=== PATIENT | male | born 1980 | race Two or more races ===

== ENCOUNTER 2020-12-22 23:51 | Emergency (ER) | payer OTHER, SELFPAY ==
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
--- NOTE | ~2020-12-22 | XR_ITS ---
EXAMINATION: XR HIP, LEFT CLINICAL INFORMATION: Post reduction COMPARISON: 12/23/2020 TECHNIQUE: Two views of the left hip. FINDINGS: Alignment across the left hip is now anatomic. Mild sclerotic change is demonstrated along the acetabulum. No definite fracture seen. Remaining included portions of the pelvis appear intact. XR/XR hip LT min 2V IMPRESSION: Anatomic alignment across the left hip.
[2020-12-22 23:58] VITALS: BP 150/100; PULSE 89; RESP 16; TEMP 37.2; O2SAT 99; BMI 27.7
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
--- NOTE | 2020-12-23 00:56 | PC.NURSE ---
PT MOVED TO MAIN ED LEFT HIP DISLOCATED REPORT GIVEN TO JUAN JOSE MATHEWS.
[2020-12-23 01:10] VITALS: RESP 20
[2020-12-23] MEDS: fentaNYL citrate/PF 100 MCG/2 ML VIAL IVPUSH (01:10)
[2020-12-23 01:16] LABS: MANUAL DIFF FLAG NO
[2020-12-23 01:24] LABS: Basophils Percent Auto 0.2 % (0-2); Eosinophils Percent Auto 0.5 % (0-4); Hematocrit 44.8 % (42-52); Hemoglobin 15.6 g/dl (14.0-18.0); Imm Gran Abs Auto 0.04 X10*3/uL (0.00-0.03); Imm Gran Pct Auto 0.6 % (0.0-0.4); Lymphocytes Absolute Auto 2.4 X10*3/uL (1.2-4.9); Lymphocytes Percent Auto 36.3 % (20-40); Mean Corpuscular HGB Conc 34.8 g/dl (31.0-36.0); Mean Corpuscular Hemoglobin 31.8 pg (27.0-33.0); Mean Corpuscular Volume 91.4 fL (80-98); Mean Platelet Volume 10.3 fL (9.4-12.4); Monocytes Absolute Auto 0.4 X10*3/uL (0.1-1.2); Monocytes Percent Auto 6.3 % (2-11); Neutrophils Absolute Auto 3.7 X10*3/uL (2.0-8.3); Neutrophils Percent Auto 56.1 % (45-73); Platelet Count 270 X10*3/uL (160-400); Red Cell Distribution Width 13.1 % (11.0-16.0); White Blood Count 6.5 X10*3/uL (4.8-10.8)
[2020-12-23 01:25] VITALS: BP 172/96; PULSE 102; RESP 10; TEMP 36.8; O2SAT 93
[2020-12-23 01:27] VITALS: BP 176/92; PULSE 105; RESP 18; O2SAT 99
[2020-12-23 01:32] VITALS: BP 139/86; PULSE 89; RESP 19
[2020-12-23 01:46] VITALS: BP 144/78; PULSE 95; RESP 15
--- NOTE | 2020-12-23 01:48 | PC.NURSE ---
moderate sedation completed. pt on monitored and vitals stable. pt able to be awaken and answer questions. Will continue to monitor
[2020-12-23 01:49] LABS: Alanine Aminotransferase 52 U/L (0-40); Albumin Level 4.6 g/dL (3.5-5.0); Alkaline Phosphatase 71 U/L (39-117); Aspartate Amino Transferase 45 U/L (5-37); Bilirubin Total 0.3 mg/dL (0.0-1.0); Blood Urea Nitrogen 13 mg/dL (9-16); Calcium 8.9 mg/dL (8.4-10.2); Creatinine Clr Calc Pharmacy 103.5; Estimated Glomerular Filt Rate > 60; Glucose Random 152 mg/dL (60-115); Total Protein 7.3 g/dL (6.5-8.0)
[2020-12-23] MEDS: propofoL 200 MG/20 ML VIAL 40 MG IVPUSH (01:52)
[2020-12-23 02:04] VITALS: BP 135/77; PULSE 93; RESP 13; TEMP 36.4; O2SAT 93
[2020-12-23 02:11] LABS: Anion Gap 21 (12-20); Carbon Dioxide 21 mmol/L (22-29); Chloride 103 mmol/L (96-108); Ethanol 172 mg/dL; Potassium 3.6 mmol/L (3.3-5.1); Sodium 141 mmol/L (135-145)
--- NOTE | 2020-12-23 02:27 | PC.NURSE ---
Provider in to assess pt. pt is responsive. positive cms and pedal pulses
== END 2020-12-23 03:39 | disposition home or self-care (01) ==
LOC: HO.ED 12-23 02:41
PROVIDERS: Emergency Provider Emergency Medicine Emergency Medical Services
DX: S73.035A Other anterior dislocation of left hip, initial encounter (principal); V47.5XXA Car driver injured in collision with fixed or stationary object in traffic accident, initial encounter; Y93.89 Activity, other specified; Y92.414 Local residential or business street as the place of occurrence of the external cause; Y99.9 Unspecified external cause status
CPT/HCPCS: 27250; 27252; 36415; 73502; 73521; 80053; 80320; 85025; 99152; 99284; 99285; J3010

== ENCOUNTER 2021-01-01 08:52 | Outpatient (REF) | payer OTHER, SELFPAY | END 2021-01-01 08:53 | disposition home or self-care (01) | LOC: HO.HOSX 08:52 | PROVIDERS: Visit Provider Physician Assistant | DX: Z13.89 Encounter for screening for other disorder (principal) ==

== ENCOUNTER 2022-03-12 03:26 | Emergency (ER) | payer OTHER, MEDICAID, SELFPAY ==
[2022-03-12 03:39] VITALS: BP 145/85; PULSE 72; RESP 18; O2SAT 98; BMI 26.2
[2022-03-12 03:44] VITALS: BP 133/86; PULSE 66; RESP 13; O2SAT 96
--- NOTE | 2022-03-12 03:44 | ED_ITS ---
HPI - Allergic Reaction General Chief complaint: Allergic Reaction <ALMA Walden Last Filed: 03/12/22 06:46> Stated complaint: Allergic reaction <ALMA Walden Last Filed: 03/12/22 06:46> Time Seen by Provider: 03/12/22 03:34 <ALMA Walden Last Filed: 03/12/22 06:46> Source: patient <ALMA Walden Last Filed: 03/12/22 06:46> Mode of arrival: ambulatory <ALMA Walden Last Filed: 03/12/22 06:46> Limitations: no limitations <ALMA Walden Last Filed: 03/12/22 06:46> History of Present Illness HPI narrative: This is a 42-year-old male no known medical history presenting to the emergency department with allergic reaction . Patient tells me that he had raw shrimp yesterday at approximately 17:00 he tells me he was fine until he woke up at around 2 or 3 in the morning when he noted that he was having difficulty swallowing, speaking, his tongue was swollen he had a rash throughout his body and he was having difficulty breathing. He tells me that he has no known food allergies, his only known allergy is to oxycodone which causes itching. He tells me he eats shrimp all the time and has never had any issues. Patient denies nausea, vomiting, abdominal pain, chest pain. <ALMA Walden Last Filed: 03/12/22 06:46> MD complaint: allergic reaction and hives <ALMA Walden Last Filed: 03/12/22 06:46> Onset (ago): hour(s) (10) <ALMA Walden Last Filed: 03/12/22 06:46> Exposure: food (shrimp) <ALMA Walden Last Filed: 03/12/22 06:46> Symptoms: rash, itching, facial swelling, lip swelling, difficulty swallowing, difficulty breathing, tongue swelling and hoarseness <ALMA Walden Last Filed: 03/12/22 06:46> Severity: severe <ALMA Walden Last Filed: 03/12/22 06:46> Treatment prior to arrival: none <ALMA Walden Last Filed: 03/12/22 06:46> Previous Allergic Reaction History: none <ALMA Walden Last Filed: 03/12/22 06:46> Related Data Home medications: Previous Rx's Medication Instructions Recorded diphenhydramine HCl 25 mg capsule 25 mg PO Q8H PRN #14 cap 03/12/22 (Benadryl) epinephrine 0.3 mg/0.3 mL 0.3 mg (0.3 mL) IM Q4H PRN #2 ea 03/12/22 injection, auto-injector (EpiPen 2-Hiram) prednisone 20 mg tablet 40 mg PO DAILY 5 Days #10 tab 03/12/22 <ALMA Walden Last Filed: 03/12/22 06:46> Allergies/adverse reactions: Allergies Allergy/AdvReac Type Severity Reaction Status Date / Time oxycodone Allergy Unknown Hives Verified 03/12/22 03:43 <ALMA Walden Last Filed: 03/12/22 06:46> Review of Systems Review of Systems: Constitutional : No Weight loss, No Fever, No Chills, No Fatigue, No Malaise ENT/Mouth : No sore throat, No Rhinorrhea, + edema to lips, + tongue swelling Eyes: No Eye Pain, No Swelling, No Redness Cardiovascular : No Chest Pain, + SOB, No Dyspnea on Exertion, No Orthopnea, No Edema, No Palpitations Respiratory : No Cough, No Sputum, No Wheezing Gastrointestinal : No Nausea, No Vomiting, No Diarrhea, No Constipation, No abdominal Pain, No Hematochezia, No Melena Genitourinary : No Dysuria, No Urinary Frequency, No Hematuria, Musculoskeletal : No joint pain, No Myalgias, No Joint Swelling Skin : No Skin Lesions, No rash Neuro : No Weakness, No Numbness, No Dizziness, No Headache Psych : No Anxiety/Panic, No Depression All other systems reviewed and are negative <ALMA Walden Last Filed: 03/12/22 06:46> Yes all other systems are reviewed and are negative <ALMA Walden - Last Filed: 03/12/22 06:46> [facility] Past Medical History Attestation statement: The following information was validated with the patient. <ALMA Walden - Last Filed: 03/12/22 06:46> Source: old records reviewed and nursing notes reviewed <ALMA Walden - Last Filed: 03/12/22 06:46> Medical History: Medical History No known health problems <ALMA Walden - Last Filed: 03/12/22 06:46> Social History Social History: Social History Alcohol intake: current Alcohol intake frequency: a few times a month Patient Tobacco Use Status: Never used Tobacco Use of substances other than those prescribed or required for medical reasons: No Advance Directives: No <ALMA Walden - Last Filed: 03/12/22 06:46> Physical Exam ED Vital Signs: Vital Signs - 24 hr 03/12/22 03:39 03/12/22 03:44 03/12/22 04:00 Temperature Pulse Rate 72 66 55 Respiratory Rate 18 13 20 Blood Pressure 145/85 H 133/86 142/79 H Pulse Oximetry 98 96 99 03/12/22 06:00 03/12/22 07:29 Temperature 98.3 F Pulse Rate 82 85 Respiratory Rate 13 16 Blood Pressure 125/74 141/80 H Pulse Oximetry 95 96 BMI result Body Mass Index 26.2 VSS <ALMA Walden - Last Filed: 03/12/22 06:46> Vital Signs - 24 hr 03/12/22 03:39 03/12/22 03:44 03/12/22 04:00 Temperature Pulse Rate 72 66 55 Respiratory Rate 18 13 20 Blood Pressure 145/85 H 133/86 142/79 H Pulse Oximetry 98 96 99 03/12/22 06:00 03/12/22 07:29 Temperature 98.3 F Pulse Rate 82 85 Respiratory Rate 13 16 Blood Pressure 125/74 141/80 H Pulse Oximetry 95 96 BMI result Body Mass Index 26.2 <Colby Dunbar MD - Last Filed: 03/12/22 09:13> Appearance: Alert.? Oriented X3.? No acute distress.?+ Patient has a hoarse voice, speaking in short sentences. Head: Normocephalic, atraumatic, no step-offs or deformities Eyes: Pupils equal, round and reactive to light.? ENT: + angiedema, swelling of lips, tongue, and uvula. Neck: Normal inspection.? Neck supple.? CVS: Normal heart rate and rhythm.? Pulses normal.? Respiratory: No respiratory distress.? Breath sounds normal.? Abdomen: Soft and nontender.? Skin: Skin warm and dry.? Normal skin color.? Normal skin turgor.?+ urticaria noted scattered throughout body Extremities: No lower extremity edema.? No calf ttp. 5/5 strength to bilateral upper and lower extremities Back: No midline tenderness, no C-spine tenderness, full range of motion, no CVA tenderness bilaterally Neuro: Oriented X 3.? No motor deficit.? No sensory deficit. CN 2-12 intact <ALMA Walden - Last Filed: 03/12/22 06:46> Course Reevaluation(s) Reevaluation #1: Patient reports he is feeling better after epinephrine, Solu-Medrol, Pepcid and Benadryl. Speaking in full sentences saturating 99% on room air. On the linen clerk in a normal sinus rhythm pulse rate between is 60s and 70s. Appears well no acute distress. <ALMA Walden - Last Filed: 03/12/22 06:46> Time: 04:24 <ALMA Walden - Last Filed: 03/12/22 06:46> Reevaluation #2: Upon re-evaluation swelling has improved significantly. Patient speaking in full sentences, controlling secretions well, voices much more clear, no longer course. Patient tells me he is feeling better he does not feel like his throat is closing. Patient's vital signs are stable saturating 98 99% on room air. Educated patient on proper use of EpiPen. Patient will be discharged home on prednisone. He will also be given an EpiPen and Benadryl. I gave patient information of an allergy/immunology doctor in the area that he can follow up with for full panel allergy testing. Advised him to stay away from possible triggers such as shrimp and or anything else he feels could have contributed to this episode. Patient feels well excited to go home, no medical complaints at this time. I also had evaluate this patient who agrees that patient is appropriate for discharge and he should be discharged home on steroids with an EpiPen. Comfortable with discharge home with PCP and specialist follow-up. <ALMA Walden - Last Filed: 03/12/22 06:46> Time: 06:29 <ALMA Walden - Last Filed: 03/12/22 06:46> Reevaluation #3: Just prior to trying to discharge the patient, he complained of increased difficulty swallowing therefore he was given a 2nd dose of epinephrine IM. He now is feeling better. He states that he states that he is having no difficulty swallowing. He believes that his tongue is back to normal size in his lips of also return to normal size. The patient will be discharged home. I did discuss allergic reactions and the need for possible referral to an at geographic information systems manager since there is no clear allergies for his symptoms. <Colby Dunbar MD - Last Filed: 03/12/22 09:13> Time: 09:10 <Colby Dunbar MD - Last Filed: 03/12/22 09:13> MDM - Allergic Reaction MDM Narrative Medical decision making narrative: 0340 42-year-old male presents with acute allergic reaction to suspected shrimp. Physical examination significant for edema to lips, tongue, uvula, hoarse voice. Patient controlling secretions well. Stable vitals. Lungs clear. Regular rate and rhythm. Abdomen soft nontender nondistended. Neuro exam nonfocal. Immediately upon patient's arrival 0.3 mg of IM epinephrine were administered. As well as Pepcid, methylprednisolone, Benadryl and normal saline. <ALMA Walden - Last Filed: 03/12/22 06:46> Medical Records Attestation: I reviewed the patient's medical records. <ALMA Walden - Last Filed: 03/12/22 06:46> Lab Data Attestation: I reviewed the patient's lab results. <ALMA Walden - Last Filed: 03/12/22 06:46> Critical Care Time Critical Care Time Critical Care Time: No <ALMA Walden - Last Filed: 03/12/22 06:46> Discharge Plan Discharge Clinical Impression: Allergic reaction, Urticaria, Anaphylaxis <ALMA Walden Last Filed: 03/12/22 06:46> Patient Disposition: Home, Self-Care <ALMA Walden - Last Filed: 03/12/22 06:46> Instructions: Urticaria (ED), General Allergic Reaction (ED), Allergy Testing (ED) <ALMA Walden - Last Filed: 03/12/22 06:46> Additional Instructions: Take your medications as prescribed. If you were prescribed antibiotics today, it is important that you take your medication to their entirety, do not skip any doses, do not finish them early. Follow-up with your primary care provider this week. Follow up with an allergy doctor as soon as possible as you will likely require full panel allergy testing. An EpiPen has been sent to your pharmacy, please use this as instructed in cases of emergencies such as difficulty breathing, speaking, feeling like her throat is closing, shortness of breath. If you use your EpiPen you must seek medical attention immediately after. I have educated on proper use and appropriate situations and when to use it. If you have any other questions please feel free to ask the pharmacist. Ghanshyam has also been sent to her pharmacy for a mild reaction such as hives. Return to the emergency department with new or worsening symptoms. Such as fevers, chills, chest pain, shortness of breath, nausea, vomiting, dizziness, headache, vision changes, lethargy For now on until your told otherwise please avoid eating shrimp and or medications that may have triggered this reaction. In case of emergency call 911 Talk to your doctor about getting referred to an vendor specialist, you can try the group below as well. JAMI: [facility] [address] [place], [facility] [id number] <ALMA Walden Last Filed: 03/12/22 06:46> Prescriptions: New epinephrine [EpiPen 2-Hiram] 0.3 mg/0.3 mL auto-injector 0.3 mg IM Q4H PRN (Reason: anaphylaxis) Qty: 2 0RF diphenhydramine HCl [Benadryl] 25 mg capsule 25 mg PO Q8H PRN (Reason: allergic reaction) Qty: 14 0RF prednisone 20 mg tablet 40 mg PO DAILY 5 Days Qty: 10 0RF <ALMA Walden - Last Filed: 03/12/22 06:46> Referrals: ED Physician,Generic [Physician] - 2 days <ALMA Walden - Last Filed: 03/12/22 06:46> Stand Alone Forms: Work/School Release <ALMA Walden - Last Filed: 03/12/22 06:46> Interventions: ED Discharge Assessment Last Done: 03/12/22 06:34 <ALMA Walden - Last Filed: 03/12/22 06:46>
[2022-03-12] MEDS: EPINEPHrine 1 MG/ML VIAL 0.3 MG IM ×2 (03:45→06:53)
[2022-03-12] MEDS: methylPREDNISolone Sod Succ 125 MG/2 ML VIAL IVPUSH (03:46)
[2022-03-12] MEDS: Famotidine/PF 20 MG/2 ML VIAL IVPUSH (03:46)
[2022-03-12] MEDS: 0.9 % Sodium Chloride 1,000 ML 999 ML IV (03:46)
[2022-03-12] MEDS: diphenhydrAMINE HCL 50 MG/ML VIAL 25 MG IVPUSH (03:46)
--- NOTE | 2022-03-12 03:55 | PC.NURSE ---
pt changed over, provider into assess pt. pt had swollen lips and tongue due to eating shrimp. no distress to airway. Iv placed and medications given per order. pt placed on the tele-monitor at the bedside. Reported to JUAN JOSE Pickard.
[2022-03-12 04:00] VITALS: BP 142/79; PULSE 55; RESP 20; O2SAT 99
[2022-03-12 06:00] VITALS: BP 125/74; PULSE 82; RESP 13; O2SAT 95
--- NOTE | 2022-03-12 07:03 | PC.NURSE ---
report taken from samara rn pt here for angioedema/swelling from unknown source, pt sts recently having shrimp and motrin which were only things out of ordinary for him of late. no distress on first contact, rr even unlabored, given second im dose of epi by previous shift rn. will assess readiness for dc pending effect.
[2022-03-12 07:29] VITALS: BP 141/80; PULSE 85; RESP 16; TEMP 36.8; O2SAT 96
== END 2022-03-12 09:40 | disposition home or self-care (01) ==
PROVIDERS: Emergency Provider Emergency Medicine Emergency Medical Services; PCP Internal Medicine
DX: T78.02XA Anaphylactic reaction due to shellfish (crustaceans), initial encounter (principal); L27.2 Dermatitis due to ingested food; L50.0 Allergic urticaria; R13.10 Dysphagia, unspecified; Z79.899 Other long term (current) drug therapy
CPT/HCPCS: 96361; 96372; 96374; 96375; 99284; J0171; J1200; J2930

== ENCOUNTER 2022-11-18 15:04 | Emergency (ER) | payer OTHER, MEDICAID, SELFPAY ==
--- NOTE | ~2022-11-18 | CT_ITS ---
EXAMINATION: CT ANGIOGRAM OF THE CHEST WITH AND WITHOUT CONTRAST (CT PULMONARY ANGIOGRAM FOR PE) CLINICAL INFORMATION: Reason for Exam CP st elevations COMPARISON: None TECHNIQUE: Prior to contrast administration, noncontrast localization images were obtained. Subsequently, multidetector volumetric imaging was performed from the thoracic inlet to below the diaphragms following the administration of 80 mL Omnipaque 350 intravenous contrast. No contrast reaction reported Sagittal, coronal, and MIP oblique sagittal reformatted images were obtained on the CT workstation, uploaded to PACS, and reviewed. This CT examination was performed using dose optimization techniques as appropriate, variously including the following: *Automated exposure control *Adjustment of mA and/or kV according to patient size (this includes techniques or standardized protocols for targeted exams where dose is matched to indication/reason for exam; i.e. extremities or head) *Use of iterative reconstruction technique Total exam dose-length product 385 mGy-cm FINDINGS: QUALITY OF STUDY/CONTRAST BOLUS: Satisfactory. PULMONARY ARTERIES: No central or segmental pulmonary emboli. THORACIC AORTA: No aneurysm or dissection. LUNG: Both lungs are fairly well-expanded and clear of acute pneumonic process. No pulmonary nodule, mass or consolidation seen. PLEURA: No pleural effusion or pneumothorax. MEDIASTINUM: Thyroid lobes are symmetrical and normal. The central trachea and bronchi are widely patent. No abnormal size mediastinal or hilar lymph nodes seen. There is no pericardial effusion. CORONARY ARTERY CALCIFICATION: None visualized on this study. CHEST WALL/AXILLA: No axillary or internal mammary lymphadenopathy. OSSEOUS STRUCTURES: No aggressive lytic or sclerotic process seen. UPPER ABDOMEN: Visualized liver, spleen, pancreas and bilateral adrenal glands are unremarkable. There is a small hiatal hernia. No reflux of contrast into the hepatic veins to suggest elevated right heart pressures. CT/CT angio chest PE protocol IMPRESSION: 1. No evidence of PE. 2. No evidence of aortic dissection or aneurysm. 3. Small hiatal hernia VTE: Negative
--- NOTE | ~2022-11-18 | XR_ITS ---
EXAMINATION: XR CHEST CLINICAL INFORMATION: Chest pain. COMPARISON: Chest and rib radiographs dated 06/17/2014. TECHNIQUE: 2 views of the chest were obtained. FINDINGS: No significant abnormality is noted involving the heart, lungs, mediastinum, bony thorax or soft tissues. XR/XR chest 2V IMPRESSION: No acute cardiopulmonary process.
--- NOTE | 2022-11-18 15:06 | ECG_ITS ---
Test Reason : cp Blood Pressure : / mmHG Vent. Rate : 076 BPM Atrial Rate : 076 BPM P-R Int : 172 ms QRS Dur : 098 ms QT Int : 362 ms P-R-T Axes : 046 -19 -13 degrees QTc Int : 407 ms Normal sinus rhythm Moderate voltage criteria for LVH, may be normal variant ( R in aVL , [place] product ) ST elevation, consider early repolarization, pericarditis, or injury Abnormal ECG No previous ECGs available Referred By: Kamille Coy Electronically Signed By:Gopal Gonzalez
[2022-11-18 15:07] VITALS: BP 135/87; PULSE 81; RESP 18; TEMP 36.8; O2SAT 98; BMI 27.8
--- NOTE | 2022-11-18 15:07 | ED.CHESTPAIN ---
HPI - Chest Pain General Chief Complaint: Chest Pain <Kamille Coy NP - Last Filed: 11/18/22 15:09> Stated Complaint: chest pain <Kamille Coy NP - Last Filed: 11/18/22 15:09> Time Seen by Provider: 11/18/22 16:05 <Kamille Coy NP - Last Filed: 11/18/22 15:09> Source: patient <Yamila Ragland NP - Last Filed: 11/19/22 00:31> Mode of arrival: ambulatory <Yamila Ragland NP - Last Filed: 11/19/22 00:31> Limitations: no limitations <Yamila Ragland NP - Last Filed: 11/19/22 00:31> History of Present Illness HPI narrative: 42-year-old male presents from Dr. Chapa's office for abnormal EKG. Patient presented for 2 months of intermittent substernal chest pain. <Yamila Ragland NP - Last Filed: 11/19/22 00:31> MD complaint: chest pain and chest discomfort <Yamila Ragland NP - Last Filed: 11/19/22 00:31> Onset (ago): month(s) (2) <Yamila Ragland NP - Last Filed: 11/19/22 00:31> Timing of current episode: episodic <Yamila Ragland NP - Last Filed: 11/19/22 00:31> Prior episodes: Yes <Yamila Ragland NP - Last Filed: 11/19/22 00:31> Onset: during rest <Yamila Ragland NP - Last Filed: 11/19/22 00:31> Pain location: substernal <Yamila Ragland NP - Last Filed: 11/19/22 00:31> Pain radiation: none <Yamila Ragland NP - Last Filed: 11/19/22 00:31> Severity: moderate <Yamila Ragland NP - Last Filed: 11/19/22 00:31> Pain scale (0-10): 5 <Yamila Ragland NP - Last Filed: 11/19/22 00:31> Quality: tightness and heaviness <CATHY Holbrook Last Filed: 11/19/22 00:31> Relieving factors: nothing <Yamila Ragland NP - Last Filed: 11/19/22 00:31> Exacerbating factors: exertion <Yamila Ragland NP - Last Filed: 11/19/22 00:31> Associated symptoms: dyspnea <Yamila Ragland NP - Last Filed: 11/19/22 00:31> Treatment prior to arrival: none <Yamila Ragland NP - Last Filed: 11/19/22 00:31> Risk Factors Coronary artery disease risk factors: none <CATHY Holbrook Last Filed: 11/19/22 00:31> Thoracic aortic dissection risk factors: none <Yamila Ragland NP - Last Filed: 11/19/22 00:31> Related Data Home Medications: Previous Rx's Medication Instructions Recorded diphenhydramine HCl 25 mg capsule 25 mg PO Q8H PRN allergic reaction 03/12/22 (Benadryl) #14 caps epinephrine 0.3 mg/0.3 mL 0.3 mg (0.3 mL) IM Q4H PRN 03/12/22 injection, auto-injector (EpiPen anaphylaxis #2 ea 2-Hiarm) prednisone 20 mg tablet 40 mg PO DAILY 5 days #10 tabs 03/12/22 <Kamille Coy NP - Last Filed: 11/18/22 15:09> Allergies/Adverse Reactions: Allergies Allergy/AdvReac Type Severity Reaction Status Date / Time oxycodone Allergy Unknown Hives Verified 03/12/22 03:43 <Kamille Coy NP - Last Filed: 11/18/22 15:09> Review of Systems Review of Systems: Constitutional: No Fever, No Chills Cardiovascular: Positive Chest Pain, positive SOB on exertion. Respiratory: No Cough, No Dyspnea Gastrointestinal: No Nausea, No Vomiting, No Diarrhea, No abdominal Pain Genitourinary: No Dysuria, No Hematuria Musculoskeletal: No joint pain, No Myalgias, No Joint Swelling Skin: No Skin lacerations, No rash Neuro: No Weakness, No Numbness, No Paresthesias, No Dizziness, No Headache Psych: Positive Anxiety, no Panic, No Depression <Yamila Ragland NP - Last Filed: 11/19/22 00:31> Yes all other systems are reviewed and are negative <Yamila Ragland NP - Last Filed: 11/19/22 00:31> [facility] Past Medical History Attestation statement: The following information was validated with the patient. <Yamila Ragland NP - Last Filed: 11/19/22 00:31> Source: old records reviewed <Yamila Ragland NP - Last Filed: 11/19/22 00:31> Medical History: Medical History No known health problems <Kamille Coy NP - Last Filed: 11/18/22 15:09> Social History Social History: Social History Alcohol intake: unknown Patient Tobacco Use Status: Never used Tobacco Smoked in Last 30 Days: No Use of substances other than those prescribed or required for medical reasons: No Advance Directives: No Advance Directives Information Provided: Yes <Kamille Coy NP - Last Filed: 11/18/22 15:09> Physical Exam Vital Signs: Vital Signs: Last Vital Signs Temp 98.3 F 11/18/22 15:07 Pulse 71 11/18/22 20:42 Resp 14 11/18/22 20:42 BP 147/75 H 11/18/22 20:42 Pulse Ox 94 11/18/22 20:42 O2 Del Method 11/18/22 20:42 BMI result Body Mass Index 27.8 <Kmaille Coy NP - Last Filed: 11/18/22 15:09> Vital Signs: Last Vital Signs Temp 98.3 F 11/18/22 15:07 Pulse 71 11/18/22 20:42 Resp 14 11/18/22 20:42 BP 147/75 H 11/18/22 20:42 Pulse Ox 94 11/18/22 20:42 O2 Del Method 11/18/22 20:42 BMI result Body Mass Index 27.8 <Yamila Ragland NP - Last Filed: 11/19/22 00:31> Appearance: Alert. Oriented X3. Moderate anxiety distress. Eyes: Pupils equal, round and reactive to light. ENT: Pharynx normal. Neck: Normal inspection. Neck supple. CVS: Normal heart rate and rhythm. Pulses normal. Respiratory: No respiratory distress. Breath sounds normal. Abdomen: Soft and nontender. Skin: Skin warm and dry. Normal skin color. Normal skin turgor. Extremities: No lower extremity edema. Gait well-balanced well coordinated. Neuro: No motor deficit. No sensory deficit. Cranial nerves 2-12 intact. <Yamila Ragland NP - Last Filed: 11/19/22 00:31> Course Course Course Narrative: This is a rapid medical exam. Defer additional HPI, ROS, PE to prior provider. 42-year-old male with no known medical history here with intermittent chest pain x 2 months. Seen at primary care and referred in for further evaluation. Patient reports some intermittent chest pain and shortness of breath. No palpitations, dizziness, cough or fever. Will need labs, EKG, CXR, covid screen. VSS <Kamille Coy NP - Last Filed: 11/18/22 15:09> This is a rapid medical exam. Defer additional HPI, ROS, PE to prior provider. 42-year-old male with no known medical history here with intermittent chest pain x 2 months. Seen at primary care and referred in for further evaluation. Patient reports some intermittent chest pain and shortness of breath. No palpitations, dizziness, cough or fever. Will need labs, EKG, CXR, covid screen. VSS 42-year-old male presents with 2 months of intermittent substernal chest pain that feels like pressure and tightness with shortness of breath on exertion. Patient does not report any changes in vision, diaphoresis, weakness, a radiation of pain to arm or neck during these episodes of chest pain. States it feels better when he lays on his right side. He does have a significant family history of sudden cardiac in his mother, in her 30s. Patient does not take any medications at this time, and feel substernal chest pain at this moment. 16:[address] elevations consistent with pericarditis, early repolarization or injury, I did discuss this with Dr. Gonzalez, order for repeat EKG, and bedside echo stat. I did I doubt an ESR CRP 2nd troponin and gave 0.5 mg of IV Ativan for anxiety. 16:52 STEMI with reciprocal changes, echo being completed at bedside at this time, given aspirin [address] 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 Echocardiogram negative for acute findings. Normal ejection fraction. PE study is negative for acute findings. Third troponin is negative. Low likelihood of ACS at this time, most likely pericarditis. Will have patient follow-up with Dr. Gonzalez in the office. Dr. Gonzalez was consulted throughout the entire duration of this patient's stay. Plan of care is for discharge home. Patient understands signs and symptoms indicating need for emergent intervention. <Yamila Ragland NP - Last Filed: 11/19/22 00:31> Consultations Consultation #1: Carlos <Yamila Ragland NP - Last Filed: 11/19/22 00:31> Time: 16:39 <Yamila Ragland NP - Last Filed: 11/19/22 00:31> Medications Administered Discontinued Medications Generic Name Dose Route Start Last Admin Trade Name Freq PRN Reason Stop Dose Admin Aspirin 324 mg 11/18/22 16:53 11/18/22 16:58 Aspirin 81 Mg Tab.Chew PO 11/18/22 16:54 324 mg ONCE ONE Administration Atorvastatin Calcium 80 mg 11/18/22 16:53 11/18/22 16:59 Atorvastatin Calcium 80 Mg Tablet PO 11/18/22 16:54 80 mg ONCE ONE Administration Iohexol 100 ml 11/18/22 18:47 11/18/22 18:47 Iohexol 350 Mg/Ml 100 Ml Infus..Btl IV 11/18/22 18:48 65 ml ONCE ONE Administration Lorazepam 0.5 mg 11/18/22 16:38 11/18/22 16:59 Lorazepam 2 Mg/Ml Vial IVPUSH 11/18/22 16:39 0.5 mg STAT STA Administration <Kamille Coy NP - Last Filed: 11/18/22 15:09> Medications Administered Discontinued Medications Generic Name Dose Route Start Last Admin Trade Name Freq PRN Reason Stop Dose Admin Aspirin 324 mg 11/18/22 16:53 11/18/22 16:58 Aspirin 81 Mg Tab.Chew PO 11/18/22 16:54 324 mg ONCE ONE Administration Atorvastatin Calcium 80 mg 11/18/22 16:53 11/18/22 16:59 Atorvastatin Calcium 80 Mg Tablet PO 11/18/22 16:54 80 mg ONCE ONE Administration Iohexol 100 ml 11/18/22 18:47 11/18/22 18:47 Iohexol 350 Mg/Ml 100 Ml Infus..Btl IV 11/18/22 18:48 65 ml ONCE ONE Administration Lorazepam 0.5 mg 11/18/22 16:38 11/18/22 16:59 Lorazepam 2 Mg/Ml Vial IVPUSH 11/18/22 16:39 0.5 mg STAT STA Administration <Yamila Ragland NP - Last Filed: 11/19/22 00:31> Medical Decision Making Differential Diagnosis Differential Diagnoses: The differential diagnosis associated with the presentation includes <Yamila Ragland NP - Last Filed: 11/19/22 00:31> STEMI, pericarditis <Yamila Ragland NP - Last Filed: 11/19/22 00:31> Admission/Observation Consideration of admission/observation: Escalation of care including admission/observation considered <Yaimla Ragland NP - Last Filed: 11/19/22 00:31> Consult Healthcare Provider Management of the patient was discussed with: Hospitalist and [employer] Member Other Ranks <Yamila Ragland NP - Last Filed: 11/19/22 00:31> Lab Data MDM Lab Attestation statement: I reviewed the patient's lab results. <Yaimla Ragland NP - Last Filed: 11/19/22 00:31> Result Diagrams: 11/18/22 15:16 11/18/22 15:16 <Kamilel Coy NP - Last Filed: 11/18/22 15:09> Labs: Lab Results 11/18/22 11/18/22 11/18/22 Range/Units 15:16 15:16 15:16 WBC 7.0 (4.8-10.8) X10*3/uL RBC 4.61 (4.60-5.80) X10*6/uL Hgb 14.9 (14.0-18.0) g/dl Hct 41.5 L (42.0-52.0) % MCV 90.0 (80.0-98.0) fL MCH 32.3 (27.0-33.0) pg MCHC 35.9 (31.0-36.0) g/dl RDW 12.9 (11.0-16.0) % Plt Count 267 (160-400) X10*3/uL MPV 9.9 (9.4-12.4) fL Immature Gran % (Auto) 0.3 (0.0-0.4) % Neut % (Auto) 58.1 (45-73) % Lymph % (Auto) 33.0 (20-40) % [place] % (Auto) 7.4 (2-11) % Eos % (Auto) 0.9 (0-4) % Baso % (Auto) 0.3 (0-2) % Lymph # (Auto) 2.3 (1.2-4.9) X10*3/uL [place] # (Auto) 0.5 (0.1-1.2) X10*3/uL Eos # (Auto) 0.1 (0.0-0.4) X10*3/uL Baso # (Auto) 0.0 (0.0-0.2) X10*3/uL Abs Immat Gran (auto) 0.02 (0.00-0.03) X10*3/uL Absolute Neuts (auto) 4.1 (2.0-8.3) x10*3/uL Absolute Nucleated RBC 0.000 (0.0-0.012) X10*3/uL Nucleated RBC % (auto) 0.0 (0.0-0.2) /100WBC ESR (0-15) MM/HR D-Dimer High Sensitivty NG/ML Sodium 142 (135-145) mmol/L Potassium 3.9 (3.3-5.1) mmol/L Chloride 104 (96-108) mmol/L Carbon Dioxide 26 (22-29) mmol/L Anion Gap 16 (12-20) BUN 8 L (9-16) mg/dL Creatinine 0.92 (0.5-1.4) mg/dL Estim Creat Clear Calc 119.1 Estimated GFR > 60 Random Glucose 86 (60-115) mg/dL Calcium 9.4 (8.4-10.2) mg/dL Total Bilirubin 0.8 (0.0-1.0) mg/dL Direct Bilirubin 0.2 (0.0-0.5) mg/dL AST 27 (5-37) U/L ALT 30 (0-40) U/L Alkaline Phosphatase 67 (39-117) U/L Troponin I High Sens < 3.5 (<3.5-35.0) ng/L C-Reactive Protein (< or = 0.50) mg/dL Total Protein 7.1 (6.5-8.0) g/dL Albumin 4.3 (3.5-5.0) g/dL COVID-19 ([facility]) (Negative) COVID-19 Clin Com 11/18/22 11/18/22 11/18/22 Range/Units 16:29 16:47 16:47 WBC (4.8-10.8) X10*3/uL RBC (4.60-5.80) X10*6/uL Hgb (14.0-18.0) g/dl Hct (42.0-52.0) % MCV (80.0-98.0) fL MCH (27.0-33.0) pg MCHC (31.0-36.0) g/dl RDW (11.0-16.0) % Plt Count (160-400) X10*3/uL MPV (9.4-12.4) fL Immature Gran % (Auto) (0.0-0.4) % Neut % (Auto) (45-73) % Lymph % (Auto) (20-40) % [place] % (Auto) (2-11) % Eos % (Auto) (0-4) % Baso % (Auto) (0-2) % Lymph # (Auto) (1.2-4.9) X10*3/uL [place] # (Auto) (0.1-1.2) X10*3/uL Eos # (Auto) (0.0-0.4) X10*3/uL Baso # (Auto) (0.0-0.2) X10*3/uL Abs Immat Gran (auto) (0.00-0.03) X10*3/uL Absolute Neuts (auto) (2.0-8.3) x10*3/uL Absolute Nucleated RBC (0.0-0.012) X10*3/uL Nucleated RBC % (auto) (0.0-0.2) /100WBC ESR 7 (0-15) MM/HR D-Dimer High Sensitivty NG/ML Sodium (135-145) mmol/L Potassium (3.3-5.1) mmol/L Chloride (96-108) mmol/L Carbon Dioxide (22-29) mmol/L Anion Gap (12-20) BUN (9-16) mg/dL Creatinine (0.5-1.4) mg/dL Estim Creat Clear Calc Estimated GFR Random Glucose (60-115) mg/dL Calcium (8.4-10.2) mg/dL Total Bilirubin (0.0-1.0) mg/dL Direct Bilirubin (0.0-0.5) mg/dL AST (5-37) U/L ALT (0-40) U/L Alkaline Phosphatase (39-117) U/L Troponin I High Sens (<3.5-35.0) ng/L C-Reactive Protein 0.20 (< or = 0.50) mg/dL Total Protein (6.5-8.0) g/dL Albumin (3.5-5.0) g/dL COVID-19 ([facility]) Negative (Negative) COVID-19 Clin Com See Note 11/18/22 11/18/22 11/18/22 Range/Units 16:47 18:12 20:36 WBC (4.8-10.8) X10*3/uL RBC (4.60-5.80) X10*6/uL Hgb (14.0-18.0) g/dl Hct (42.0-52.0) % MCV (80.0-98.0) fL MCH (27.0-33.0) pg MCHC (31.0-36.0) g/dl RDW (11.0-16.0) % Plt Count (160-400) X10*3/uL MPV (9.4-12.4) fL Immature Gran % (Auto) (0.0-0.4) % Neut % (Auto) (45-73) % Lymph % (Auto) (20-40) % [place] % (Auto) (2-11) % Eos % (Auto) (0-4) % Baso % (Auto) (0-2) % Lymph # (Auto) (1.2-4.9) X10*3/uL [place] # (Auto) (0.1-1.2) X10*3/uL Eos # (Auto) (0.0-0.4) X10*3/uL Baso # (Auto) (0.0-0.2) X10*3/uL Abs Immat Gran (auto) (0.00-0.03) X10*3/uL Absolute Neuts (auto) (2.0-8.3) x10*3/uL Absolute Nucleated RBC (0.0-0.012) X10*3/uL Nucleated RBC % (auto) (0.0-0.2) /100WBC ESR (0-15) MM/HR D-Dimer High Sensitivty < 150 NG/ML Sodium (135-145) mmol/L Potassium (3.3-5.1) mmol/L Chloride (96-108) mmol/L Carbon Dioxide (22-29) mmol/L Anion Gap (12-20) BUN (9-16) mg/dL Creatinine (0.5-1.4) mg/dL Estim Creat Clear Calc Estimated GFR Random Glucose (60-115) mg/dL Calcium (8.4-10.2) mg/dL Total Bilirubin (0.0-1.0) mg/dL Direct Bilirubin (0.0-0.5) mg/dL AST (5-37) U/L ALT (0-40) U/L Alkaline Phosphatase (39-117) U/L Troponin I High Sens 3.8 < 3.5 (<3.5-35.0) ng/L C-Reactive Protein (< or = 0.50) mg/dL Total Protein (6.5-8.0) g/dL Albumin (3.5-5.0) g/dL COVID-19 ([facility]) (Negative) COVID-19 Clin Com <Kamille Coy BEVELING MACHINE OPERATOR - Last Filed: 11/18/22 15:09> Lab Results 11/18/22 11/18/22 11/18/22 Range/Units 15:16 15:16 15:16 WBC 7.0 (4.8-10.8) X10*3/uL RBC 4.61 (4.60-5.80) X10*6/uL Hgb 14.9 (14.0-18.0) g/dl Hct 41.5 L (42.0-52.0) % MCV 90.0 (80.0-98.0) fL MCH 32.3 (27.0-33.0) pg MCHC 35.9 (31.0-36.0) g/dl RDW 12.9 (11.0-16.0) % Plt Count 267 (160-400) X10*3/uL MPV 9.9 (9.4-12.4) fL Immature Gran % (Auto) 0.3 (0.0-0.4) % Neut % (Auto) 58.1 (45-73) % Lymph % (Auto) 33.0 (20-40) % [place] % (Auto) 7.4 (2-11) % Eos % (Auto) 0.9 (0-4) % Baso % (Auto) 0.3 (0-2) % Lymph # (Auto) 2.3 (1.2-4.9) X10*3/uL [place] # (Auto) 0.5 (0.1-1.2) X10*3/uL Eos # (Auto) 0.1 (0.0-0.4) X10*3/uL Baso # (Auto) 0.0 (0.0-0.2) X10*3/uL Abs Immat Gran (auto) 0.02 (0.00-0.03) X10*3/uL Absolute Neuts (auto) 4.1 (2.0-8.3) x10*3/uL Absolute Nucleated RBC 0.000 (0.0-0.012) X10*3/uL Nucleated RBC % (auto) 0.0 (0.0-0.2) /100WBC ESR (0-15) MM/HR D-Dimer High Sensitivty NG/ML Sodium 142 (135-145) mmol/L Potassium 3.9 (3.3-5.1) mmol/L Chloride 104 (96-108) mmol/L Carbon Dioxide 26 (22-29) mmol/L Anion Gap 16 (12-20) BUN 8 L (9-16) mg/dL Creatinine 0.92 (0.5-1.4) mg/dL Estim Creat Clear Calc 119.1 Estimated GFR > 60 Random Glucose 86 (60-115) mg/dL Calcium 9.4 (8.4-10.2) mg/dL Total Bilirubin 0.8 (0.0-1.0) mg/dL Direct Bilirubin 0.2 (0.0-0.5) mg/dL AST 27 (5-37) U/L ALT 30 (0-40) U/L Alkaline Phosphatase 67 (39-117) U/L Troponin I High Sens < 3.5 (<3.5-35.0) ng/L C-Reactive Protein (< or = 0.50) mg/dL Total Protein 7.1 (6.5-8.0) g/dL Albumin 4.3 (3.5-5.0) g/dL COVID-19 ([facility]) (Negative) COVID-19 Clin Com 11/18/22 11/18/22 11/18/22 Range/Units 16:29 16:47 16:47 WBC (4.8-10.8) X10*3/uL RBC (4.60-5.80) X10*6/uL Hgb (14.0-18.0) g/dl Hct (42.0-52.0) % MCV (80.0-98.0) fL MCH (27.0-33.0) pg MCHC (31.0-36.0) g/dl RDW (11.0-16.0) % Plt Count (160-400) X10*3/uL MPV (9.4-12.4) fL Immature Gran % (Auto) (0.0-0.4) % Neut % (Auto) (45-73) % Lymph % (Auto) (20-40) % [place] % (Auto) (2-11) % Eos % (Auto) (0-4) % Baso % (Auto) (0-2) % Lymph # (Auto) (1.2-4.9) X10*3/uL [place] # (Auto) (0.1-1.2) X10*3/uL Eos # (Auto) (0.0-0.4) X10*3/uL Baso # (Auto) (0.0-0.2) X10*3/uL Abs Immat Gran (auto) (0.00-0.03) X10*3/uL Absolute Neuts (auto) (2.0-8.3) x10*3/uL Absolute Nucleated RBC (0.0-0.012) X10*3/uL Nucleated RBC % (auto) (0.0-0.2) /100WBC ESR 7 (0-15) MM/HR D-Dimer High Sensitivty NG/ML Sodium (135-145) mmol/L Potassium (3.3-5.1) mmol/L Chloride (96-108) mmol/L Carbon Dioxide (22-29) mmol/L Anion Gap (12-20) BUN (9-16) mg/dL Creatinine (0.5-1.4) mg/dL Estim Creat Clear Calc Estimated GFR Random Glucose (60-115) mg/dL Calcium (8.4-10.2) mg/dL Total Bilirubin (0.0-1.0) mg/dL Direct Bilirubin (0.0-0.5) mg/dL AST (5-37) U/L ALT (0-40) U/L Alkaline Phosphatase (39-117) U/L Troponin I High Sens (<3.5-35.0) ng/L C-Reactive Protein 0.20 (< or = 0.50) mg/dL Total Protein (6.5-8.0) g/dL Albumin (3.5-5.0) g/dL COVID-19 ([facility]) Negative (Negative) COVID-19 Clin Com See Note 11/18/22 11/18/22 11/18/22 Range/Units 16:47 18:12 20:36 WBC (4.8-10.8) X10*3/uL RBC (4.60-5.80) X10*6/uL Hgb (14.0-18.0) g/dl Hct (42.0-52.0) % MCV (80.0-98.0) fL MCH (27.0-33.0) pg MCHC (31.0-36.0) g/dl RDW (11.0-16.0) % Plt Count (160-400) X10*3/uL MPV (9.4-12.4) fL Immature Gran % (Auto) (0.0-0.4) % Neut % (Auto) (45-73) % Lymph % (Auto) (20-40) % [place] % (Auto) (2-11) % Eos % (Auto) (0-4) % Baso % (Auto) (0-2) % Lymph # (Auto) (1.2-4.9) X10*3/uL [place] # (Auto) (0.1-1.2) X10*3/uL Eos # (Auto) (0.0-0.4) X10*3/uL Baso # (Auto) (0.0-0.2) X10*3/uL Abs Immat Gran (auto) (0.00-0.03) X10*3/uL Absolute Neuts (auto) (2.0-8.3) x10*3/uL Absolute Nucleated RBC (0.0-0.012) X10*3/uL Nucleated RBC % (auto) (0.0-0.2) /100WBC ESR (0-15) MM/HR D-Dimer High Sensitivty < 150 NG/ML Sodium (135-145) mmol/L Potassium (3.3-5.1) mmol/L Chloride (96-108) mmol/L Carbon Dioxide (22-29) mmol/L Anion Gap (12-20) BUN (9-16) mg/dL Creatinine (0.5-1.4) mg/dL Estim Creat Clear Calc Estimated GFR Random Glucose (60-115) mg/dL Calcium (8.4-10.2) mg/dL Total Bilirubin (0.0-1.0) mg/dL Direct Bilirubin (0.0-0.5) mg/dL AST (5-37) U/L ALT (0-40) U/L Alkaline Phosphatase (39-117) U/L Troponin I High Sens 3.8 < 3.5 (<3.5-35.0) ng/L C-Reactive Protein (< or = 0.50) mg/dL Total Protein (6.5-8.0) g/dL Albumin (3.5-5.0) g/dL COVID-19 ([facility]) (Negative) COVID-19 Clin Com <Candy Ellyn, BEVELING MACHINE OPERATOR - Last Filed: 11/19/22 00:31> Independent Interpretation I performed an independent interpretation of an: EKG and Plain X-Ray <Yamila Ragland NP - Last Filed: 11/19/22 00:31> Interpretation: Normal sinus rhythm Moderate voltage criteria for LVH, may be normal variant ( R in aVL , [place] product ) ST elevation, consider early repolarization, pericarditis, or injury Abnormal ECG No previous ECGs available Vent. rate 76 BPM W[place] interval 172 ms QRS duration 98 ms QT/QTc 362/407 ms P-R-T axes 46 -19 -13 18-NOV-2022 15:13:37 Second EKG Normal sinus rhythm Moderate voltage criteria for LVH, may be normal variant ( R in aVL , [place] C product ) ST elevation consider lateral injury or acute infarct ACUTE MS / STEMI Abnormal ECG When compared with ECG of 18-NOV-2022 15:13, No significant change was found Vent. rate 66 BPM WV interval 184 ms QRS duration 102 ms QT/QTc 374/392 ms P-R-T axes 41 -17 -17 18-NOV-2022 16:48:05 <Yamila Ragland NP - Last Filed: 11/19/22 00:31> Radiology Impression Discussion of test interpretation with radiology: I have reviewed the radiologist's reading. <Yamila Ragland NP - Last Filed: 11/19/22 00:31> Radiologist Impression: EXAMINATION: XR CHEST CLINICAL INFORMATION: Chest pain. COMPARISON: Chest and rib radiographs dated 06/17/2014. TECHNIQUE: 2 views of the chest were obtained. FINDINGS: No significant abnormality is noted involving the heart, lungs, mediastinum, bony thorax or soft tissues. XR/XR chest 2V IMPRESSION: No acute cardiopulmonary process. FINDINGS: QUALITY OF STUDY/CONTRAST BOLUS: Satisfactory. PULMONARY ARTERIES: No central or segmental pulmonary emboli.? THORACIC AORTA: No aneurysm or dissection. LUNG: Both lungs are fairly well-expanded and clear of acute pneumonic process. No pulmonary nodule, mass or consolidation seen. PLEURA: No pleural effusion or pneumothorax. MEDIASTINUM: Thyroid lobes are symmetrical and normal. The central trachea and bronchi are widely patent.? No abnormal size mediastinal or hilar lymph nodes seen. There is no pericardial effusion. CORONARY ARTERY CALCIFICATION: None visualized on this study. CHEST WALL/AXILLA: No axillary or internal mammary lymphadenopathy. OSSEOUS STRUCTURES: No aggressive lytic or sclerotic process seen.? UPPER ABDOMEN: Visualized liver, spleen, pancreas and bilateral adrenal glands are unremarkable. There is a small hiatal hernia.? No reflux of contrast into the hepatic veins to suggest elevated right heart pressures. CT/CT angio chest PE protocol IMPRESSION: 1.? No evidence of PE. 2.? No evidence of aortic dissection or aneurysm. 3.? Small hiatal hernia VTE: Negative Conclusions: - Normal left ventricular size and systolic function. There is ? mildly increased left ventricular wall thickness.? The visually? estimated ejection fraction is between 60-65%. ? - There is no evidence of regional wall motion abnormalities.? ? - Mildly increased right ventricular cavity size.? There is? ? ? borderline right ventricular systolic function.? - There is no evidence of pericardial effusion.? Findings Procedure Information Contrast agent, definity, is being given per protocol without apparent complications. Left Ventricle Normal left ventricular size and systolic function. There is mildly increased left ventricular wall thickness.? The visually estimated ejection fraction is between 60-65%.? There is no evidence of regional wall motion abnormalities. Diastolic function is normal for age. Right Ventricle Mildly increased right ventricular cavity size.? There is borderline right ventricular systolic function. Atria The left atrium is normal in size.? The right atrium is mildly dilated. Aortic Valve There is a normal trileaflet aortic valve.? There is no aortic valve stenosis.? There is no aortic valve regurgitation. Mitral Valve Normal mitral valve structure and function.? There is no mitral valve regurgitation.? There is no mitral valve stenosis. Pulmonic Valve Normal pulmonic valve structure and function.? There is trace pulmonic valve regurgitation. Tricuspid Valve Normal tricuspid valve structure.? There is no tricuspid valve regurgitation. ?Tricuspid regurgitation envelope is inadequate for calculation of right ventricular systolic pressure.? Indeterminate right atrial pressure. Great Vessels All visible segments of the aorta are normal in size.? The visualized portions of the pulmonary artery and branches are normal. Venous The inferior vena cava was not well visualized. Pericardium/Pleural There is no evidence of pericardial effusion. Prior Study Comparison No prior study available for comparison. ?? <Yamila Ragland NP - Last Filed: 11/19/22 00:31> Independent Historian Clinical information obtained from an independent historian. History obtained from or confirmed by: Spouse <Yamila Ragland NP - Last Filed: 11/19/22 00:31> External Record Review External record reviewed: Outpatient record <Yamila Ragland NP - Last Filed: 11/19/22 00:31> Prescription Management I considered prescription management with: Pain Medication <Yamila Ragland NP - Last Filed: 11/19/22 00:31> Critical Care Time Critical Care Time Critical Care Time: Yes <Yamila Ragland NP - Last Filed: 11/19/22 00:31> Total Critical Care Time: 65 <Yamila Ragland NP - Last Filed: 11/19/22 00:31> Attestation: I have personally provided critical care time exclusive of time spent on separately billable procedures. Time includes review of laboratory data, radiology results, discussion with consultants, and monitoring for potential decompensation. Interventions were performed as documented. <Yamila Ragland NP - Last Filed: 11/19/22 00:31> Discharge Plan Discharge Clinical Impression: Pericarditis <Kamille Coy NP - Last Filed: 11/18/22 15:09> Patient Disposition: Home, Self-Care <Kamille Coy NP - Last Filed: 11/18/22 15:09> Instructions: Acute Pericarditis (ED) <Kamille Coy NP - Last Filed: 11/18/22 15:09> Additional Instructions: You were evaluated for 2 months of chest pain with an abnormal EKG. Your EKG shows ST elevations consistent with pericarditis. Your CT PE study was negative for acute findings. Your echocardiogram was normal. Please take Motrin 800 mg every 8 hours for 1 week, then Motrin 600 mg every 8 hours for 1 week, then Motrin 400 mg every 8 hours for 1 week, then Motrin 200 mg every 8 hours for 1 week then discontinue. You must follow-up with primary care as well as Cardiology. I have referred you to Dr. Gonzalez. This plumbing and heating contractor was directly involved with your care during her emergency department visit, and he did read your echocardiogram study. Please call tomorrow and request an appointment. Rest and drink plenty of fluids. Thank you for choosing this emergency department for evaluation. Please follow-up with primary care physician as needed. Return to the emergency department for any new, concerning, or worsening symptoms. <Kamille Coy NP - Last Filed: 11/18/22 15:09> Prescriptions: No Action epinephrine [EpiPen 2-Hiram] 0.3 mg/0.3 mL auto-injector 0.3 mg IM Q4H PRN (Reason: anaphylaxis) Qty: 2 0RF diphenhydramine HCl [Benadryl] 25 mg capsule 25 mg PO Q8H PRN (Reason: allergic reaction) Qty: 14 0RF prednisone 20 mg tablet 40 mg PO DAILY 5 Days Qty: 10 0RF <Kamille Coy NP - Last Filed: 11/18/22 15:09> Referrals: Harley Chapa MD [Primary Care Provider] - 5 days (Follow-up for pericarditis) Gopal Gonzalez MD [Physician] - 2 days (Cardiology appointment for abnormal EKG and suspected pericarditis) <Kamille Coy NP - Last Filed: 11/18/22 15:09> Stand Alone Forms: Work/School Release <Kamille Coy NP - Last Filed: 11/18/22 15:09> Interventions: ED Discharge Assessment Last Done: 11/18/22 21:37 <Kamille Coy NP - Last Filed: 11/18/22 15:09> Discharge Date/Time: 11/18/22 21:40 <Kamille Coy NP - Last Filed: 11/18/22 15:09>
[2022-11-18 15:36] LABS: MANUAL DIFF FLAG NO
[2022-11-18 15:39] LABS: Basophils Percent Auto 0.3 % (0-2); Eosinophils Absolute Auto 0.1 X10*3/uL (0.0-0.4); Eosinophils Percent Auto 0.9 % (0-4); Hematocrit 41.5 % (42.0-52.0); Hemoglobin 14.9 g/dl (14.0-18.0); Imm Gran Abs Auto 0.02 X10*3/uL (0.00-0.03); Imm Gran Pct Auto 0.3 % (0.0-0.4); Lymphocytes Absolute Auto 2.3 X10*3/uL (1.2-4.9); Mean Corpuscular HGB Conc 35.9 g/dl (31.0-36.0); Mean Corpuscular Hemoglobin 32.3 pg (27.0-33.0); Mean Platelet Volume 9.9 fL (9.4-12.4); Monocytes Absolute Auto 0.5 X10*3/uL (0.1-1.2); Monocytes Percent Auto 7.4 % (2-11); Neutrophils Absolute Auto 4.1 x10*3/uL (2.0-8.3); Neutrophils Percent Auto 58.1 % (45-73); Platelet Count 267 X10*3/uL (160-400); Red Blood Count 4.61 X10*6/uL (4.60-5.80); Red Cell Distribution Width 12.9 % (11.0-16.0)
[2022-11-18 15:54] LABS: Alanine Aminotransferase 30 U/L (0-40); Albumin Level 4.3 g/dL (3.5-5.0); Alkaline Phosphatase 67 U/L (39-117); Anion Gap 16 (12-20); Aspartate Amino Transferase 27 U/L (5-37); Bilirubin Direct 0.2 mg/dL (0.0-0.5); Bilirubin Total 0.8 mg/dL (0.0-1.0); Blood Urea Nitrogen 8 mg/dL (9-16); Calcium 9.4 mg/dL (8.4-10.2); Carbon Dioxide 26 mmol/L (22-29); Chloride 104 mmol/L (96-108); Creatinine Clr Calc Pharmacy 119.1; Estimated Glomerular Filt Rate > 60; Glucose Random 86 mg/dL (60-115); Potassium 3.9 mmol/L (3.3-5.1); Sodium 142 mmol/L (135-145); Total Protein 7.1 g/dL (6.5-8.0)
[2022-11-18 16:06] LABS: Troponin-I High Sensitivity < 3.5 ng/L (<3.5-35.0)
--- NOTE | 2022-11-18 16:35 | ECG_ITS ---
Test Reason : CHEST PAIN Blood Pressure : / mmHG Vent. Rate : 066 BPM Atrial Rate : 066 BPM P-R Int : 184 ms QRS Dur : 102 ms QT Int : 374 ms P-R-T Axes : 041 -17 -17 degrees QTc Int : 392 ms Normal sinus rhythm Moderate voltage criteria for LVH, may be normal variant ( R in aVL , Juan C product ) ST elevation consider lateral injury or acute infarct Abnormal ECG When compared with ECG of 18-NOV-2022 15:13, No significant change was found Referred By: Yamila Ragland Electronically Signed By:Gopal Gonzalez
--- NOTE | 2022-11-18 16:37 | CA_ITS ---
Transthoracic Echocardiogram Patient (Last, First, Middle): Richard Sosa, Gender: Male Date of : 1980 Age: 42 Procedure Date: 11/18/2022 Procedure Type: Transthoracic Echocardiogram Location: ER Height: 187.96 cm Weight: 98.43 kg BSA: 2.25 m2 Heart Rate: bpm BP: 135 / 87 mmHg Bench Mechanic: TO Referring MD: Yamila Ragland NP Symptoms: ST ELEVATION, PERICARDITIS Study Quality: Fair, contrast Conclusions: - Normal left ventricular size and systolic function. There is mildly increased left ventricular wall thickness. The visually estimated ejection fraction is between 60-65%. - There is no evidence of regional wall motion abnormalities. - Mildly increased right ventricular cavity size. There is borderline right ventricular systolic function. - There is no evidence of pericardial effusion. Findings Procedure Information Contrast agent, definity, is being given per protocol without apparent complications. Left Ventricle Normal left ventricular size and systolic function. There is mildly increased left ventricular wall thickness. The visually estimated ejection fraction is between 60-65%. There is no evidence of regional wall motion abnormalities. Diastolic function is normal for age. Right Ventricle Mildly increased right ventricular cavity size. There is borderline right ventricular systolic function. Atria The left atrium is normal in size. The right atrium is mildly dilated. Aortic Valve There is a normal trileaflet aortic valve. There is no aortic valve stenosis. There is no aortic valve regurgitation. Mitral Valve Normal mitral valve structure and function. There is no mitral valve regurgitation. There is no mitral valve stenosis. Pulmonic Valve Normal pulmonic valve structure and function. There is trace pulmonic valve regurgitation. Tricuspid Valve Normal tricuspid valve structure. There is no tricuspid valve regurgitation. Tricuspid regurgitation envelope is inadequate for calculation of right ventricular systolic pressure. Indeterminate right atrial pressure. Great Vessels All visible segments of the aorta are normal in size. The visualized portions of the pulmonary artery and branches are normal. Venous The inferior vena cava was not well visualized. Pericardium/Pleural There is no evidence of pericardial effusion. Prior Study Comparison No prior study available for comparison. Measurements 2D Linear Measurements IVSd: 1.19 0.6-0.9/0.6-1.0 cm LVIDd: 4.56 3.9-5.3/4.2-5.9 cm LVIDd Index: 2.03 2.4-3.2/2.2-3.1 cm/m2 LVIDs: 3.17 2.0-3.6 cm LVPWd: 1.17 0.7-1.1 cm LA Diam: 4.20 2.7-3.8/3.0-4.0 cm LAIDs Index: 1.87 1.5-2.3 cm/m2 LV Mass: 246.02 67-162/88-224 g LV Mass Index: 109.34 43-95/49-115 g/m2 LVOT Diam: 2.20 3.0+(-)1.3 cm 2D Systolic Function EF 4C: 58.70 >55% EF 2C: 55.20 >55% EF BiP: 57.70 >55% Mitral Valve MV Pk E: 0.71 MV PK A: 0.62 MV Decel Time: 164.00 E/A: 1.20 E'Lateral: 10.70 E'Medial: 8.59 E/E' Med: 8.30 E/E' Lat: 6.60 PHT: 48.00 MVA PHT: 4.58 Decel [place]: 4.32 Aortic Valve AoV Pk Blayne: 1.17 AoV Mn Blayne: 0.85 AoV VTI: 0.28 AoV Pk Grad: 5.00 Aov Mn Grad: 3.00 ROSEANNE Cont.VTI: 2.57 LVOT LVOT Pk Blayne: 0.90 LVOT Mn Blayne: 0.59 LVOT VTI: 0.19 LVOT Pk Grad: 3.00 LVOT Mn Grad: 2.00 LVOT Diam: 2.20 LVOT Area: 3.80 Diastolic Function MV Pk E: 0.71 MV Pk A: 0.62 E/A: 1.20 E'Medial: 8.59 E/E' Med: 8.30 E' Laterial: 10.70 E/E' Lat: 6.60 Right Ventricle TAPSE (mm): 20.90 TVS' Blayne: 10.20 Tricuspid Valve TR Pk Blayne: 1.64 TR Pk Grad: 11.00 Great Vessels Aorta Sinus of Valsalva: 3.81 2.0-3.[address] Ridge: 2.93 1.7-3.4 cm Ao Asc: 3.10 2.1-3.4 cm Updated in Other Vendor System with Status of Final Gopal Gonzalez MD electronically signed on 11/18/2022 5:59:39 PM with status of Final
[2022-11-18] MEDS: Aspirin 81 MG TAB.CHEW 324 MG PO (16:58)
[2022-11-18] MEDS: LORazepam 2 MG/ML VIAL 0.5 MG IVPUSH (16:59)
[2022-11-18] MEDS: Atorvastatin Calcium 80 MG TABLET PO (16:59)
[2022-11-18 17:10] LABS: COVID-19 Test Negative (Negative); IDNOW Serial# 55D5AD1C
[2022-11-18 17:20] LABS: Troponin-I High Sensitivity 3.8 ng/L (<3.5-35.0)
[2022-11-18 17:33] LABS: Erythrocyte Sedimentation Rate 7 MM/HR (0-15)
[2022-11-18 18:32] LABS: D Dimer High Sensitivity < 150 NG/ML
[2022-11-18] MEDS: iohexoL 350 MG/ML 100 ML INFUS..BTL IV (18:47)
[2022-11-18 20:42] VITALS: BP 147/75; PULSE 71; RESP 14; O2SAT 94
[2022-11-18 21:01] LABS: Troponin-I High Sensitivity < 3.5 ng/L (<3.5-35.0)
== END 2022-11-18 21:40 | disposition home or self-care (01) ==
PROVIDERS: Nurse Practitioner Family; Emergency Provider Emergency Medicine Emergency Medical Services; PCP Internal Medicine
DX: I31.9 Disease of pericardium, unspecified (principal); R07.89 Other chest pain; Z20.822 Contact with and (suspected) exposure to COVID-19; Z20.828 Contact with and (suspected) exposure to other viral communicable diseases; Z79.899 Other long term (current) drug therapy
CPT/HCPCS: 36415; 71046; 71275; 80048; 80076; 84484; 85025; 85379; 85652; 86140; 87635; 93005; 93306; 96374; 99284; J2060; Q9957; Q9967

== ENCOUNTER → 2022-11-22 12:55 | Outpatient (BNVA) | payer OTHER, MEDICAID, SELFPAY | PROVIDERS: PCP Internal Medicine; Visit Provider Nurse Practitioner Family | DX: R94.31 Abnormal electrocardiogram [ECG] [EKG] (principal); R07.89 Other chest pain | CPT/HCPCS: 93005 ==

== ENCOUNTER → 2022-11-27 08:03 | Outpatient (REF) | payer OTHER, MEDICAID, SELFPAY ==
--- NOTE | ~2022-11-27 | NM_ITS ---
EXERCISE MYOCARDIAL PERFUSION STUDY INDICATION: Chest pain, assess for coronary disease and ischemia TECHNIQUE: The patient was brought in for an exercise perfusion study on 11/27/2022. Patient performed exercise as per Sami protocol and was injected 35 mCi of sestamibi once target heart rate was achieved. Images were obtained using the SPECT gamma camera interlaced with the gating device. Images were obtained in supine position. Resting perfusion study was performed on 11/28/2022. Patient was administered 35 mCi of sestamibi intravenously at rest. Images were then obtained in supine position. Images were processed with the software and compared side to side in short axis, horizontal long axis and vertical long axis views. Total DLP 110mGy-cm. FINDINGS: Raw images were reviewed. The stress perfusion study showed no significant perfusion abnormality. Both uncorrected as well as CT attenuation corrected images were reviewed. The gated study shows normal LV systolic function with calculated LVEF of 61%. LV cavity is normal in size. The gated study shows normal wall thickening and contraction of segments. Resting study shows no significant perfusion abnormality. Gating at rest reveals normal wall motion with ejection fraction at 53%. The findings are consistent with no evidence of any reversible or fixed perfusion defects. NM/NM cardiolite stress test IMPRESSION: 1. Myocardial perfusion imaging study shows likely normal myocardial perfusion. 2. Gated LVEF is 61% during stress and 53% during rest. 3. Transient ischemic dilatation not present. EKG component of the test reported separately.
--- NOTE | 2022-11-27 08:08 | CA_ITS ---
Acquisition Time: 2022-11-27 08:09:41 Total Exercise Time: 00:11:00 Test Indications: Abnormal ECG Medications: NONE Protocol: DAGMAR Max HR: 166 BPM 94% of Pred: 176 BPM Max BP: 184/060 mmHG Max Work Load: 13.4 METS Exercise stress test with exercise 11 min of Dagmar protocol, achieving 94% MPHR, without anginal symptoms, without arrythmia, with normotensive response to exercise, with baseline EKG showing ST/ T wave abnormality leads III, aVF, V5-V6, without significant EKG changes during exercise or recovery. Nuclear images pending. Test reviewed with Dr Rich Referred By: Lara Bagley Overread By: LARA BAGLEY
== END ==
LOC: HO.CARD 08:03
PROVIDERS: Visit Provider Nurse Practitioner Family
DX: R07.89 Other chest pain (principal); R94.31 Abnormal electrocardiogram [ECG] [EKG]
CPT/HCPCS: 78452; 93017; A9500

== ENCOUNTER 2024-01-13 09:07 | Outpatient (REF) | payer OTHER, SELFPAY ==
[2024-01-13 09:29] LABS: MANUAL DIFF FLAG NO
[2024-01-13 10:00] LABS: Basophils Percent Auto 0.2 % (0-2); Eosinophils Absolute Auto 0.1 X10*3/uL (0.0-0.4); Hematocrit 47.1 % (42.0-52.0); Hemoglobin 16.3 g/dl (14.0-18.0); Imm Gran Abs Auto 0.01 X10*3/uL (0.00-0.03); Imm Gran Pct Auto 0.2 % (0.0-0.4); Lymphocytes Absolute Auto 1.9 X10*3/uL (1.2-4.9); Lymphocytes Percent Auto 37.3 % (20-40); Mean Corpuscular HGB Conc 34.6 g/dl (31.0-36.0); Mean Corpuscular Hemoglobin 31.3 pg (27.0-33.0); Mean Corpuscular Volume 90.4 fL (80.0-98.0); Mean Platelet Volume 10.1 fL (9.4-12.4); Monocytes Absolute Auto 0.4 X10*3/uL (0.1-1.2); Neutrophils Absolute Auto 2.7 x10*3/uL (2.0-8.3); Neutrophils Percent Auto 54.3 % (45-73); Platelet Count 280 X10*3/uL (160-400); Red Blood Count 5.21 X10*6/uL (4.60-5.80)
[2024-01-13 10:10] LABS: Estimated Average Glucose 108 mg/dL; Hemoglobin A1c % 5.4 % (<6.0)
[2024-01-13 10:37] LABS: Alanine Aminotransferase 30 U/L (0-40); Albumin Level 4.3 g/dL (3.5-5.0); Alkaline Phosphatase 69 U/L (39-117); Anion Gap 12 (12-20); Aspartate Amino Transferase 29 U/L (5-37); Bilirubin Total 0.9 mg/dL (0.0-1.0); Blood Urea Nitrogen 10 mg/dL (9-16); Calcium 9.6 mg/dL (8.4-10.2); Carbon Dioxide 29 mmol/L (22-29); Chloride 104 mmol/L (96-108); Cholesterol 273 mg/dL (<200); Estimated Glomerular Filt Rate > 60; Glucose Random 103 mg/dL (60-115); HDL Cholesterol 50 mg/dL (>40); LDL Cholesterol Calculated 187 mg/dL (<100); Potassium 4.1 mmol/L (3.3-5.1); Sodium 141 mmol/L (135-145); Total Protein 7.3 g/dL (6.5-8.0); Triglycerides 184 mg/dL (<150)
[2024-01-28 15:29] LABS: Testosterone, Total 637 ng/dL (250-1100)
== END 2024-01-13 09:08 | disposition home or self-care (01) ==
LOC: HO.LAB 09:07
PROVIDERS: PCP Internal Medicine; Visit Provider Internal Medicine
DX: Z13.6 Encounter for screening for cardiovascular disorders (principal); R53.83 Other fatigue; Z87.09 Personal history of other diseases of the respiratory system; Z83.3 Family history of diabetes mellitus; Z82.49 Family history of ischemic heart disease and other diseases of the circulatory system
CPT/HCPCS: 36415; 80053; 80061; 83036; 84402; 84403; 85025

== ENCOUNTER 2024-03-25 07:26 | Outpatient (REF) | payer OTHER, SELFPAY ==
[2024-03-25 09:15] LABS: Alanine Aminotransferase 25 U/L (0-40); Aspartate Amino Transferase 23 U/L (5-37); Cholesterol 234 mg/dL (<200); HDL Cholesterol 39 mg/dL (>40); LDL Cholesterol Calculated 174 mg/dL (<100); Triglycerides 105 mg/dL (<150)
== END 2024-03-25 07:27 | disposition home or self-care (01) ==
LOC: HO.LAB 07:26
PROVIDERS: PCP Internal Medicine; Visit Provider Internal Medicine
DX: E78.00 Pure hypercholesterolemia, unspecified (principal)
CPT/HCPCS: 36415; 80061; 82550; 84450; 84460

== ENCOUNTER 2024-09-08 11:58 | Outpatient (REF) | payer OTHER, SELFPAY ==
[2024-09-08 12:15] LABS: MANUAL DIFF FLAG NO
[2024-09-08 12:58] LABS: Basophils Percent Auto 0.5 % (0-2); Eosinophils Percent Auto 0.7 % (0-4); Hematocrit 46.1 % (42.0-52.0); Hemoglobin 15.7 g/dl (14.0-18.0); Imm Gran Abs Auto 0.01 X10*3/uL (0.00-0.03); Imm Gran Pct Auto 0.2 % (0.0-0.4); Lymphocytes Absolute Auto 2.2 X10*3/uL (1.2-4.9); Lymphocytes Percent Auto 38.8 % (20-40); Mean Corpuscular HGB Conc 34.1 g/dl (31.0-36.0); Mean Corpuscular Hemoglobin 31.1 pg (27.0-33.0); Mean Corpuscular Volume 91.3 fL (80.0-98.0); Monocytes Absolute Auto 0.4 X10*3/uL (0.1-1.2); Monocytes Percent Auto 7.3 % (2-11); Neutrophils Percent Auto 52.5 % (45-73); Platelet Count 277 X10*3/uL (160-400); Red Blood Count 5.05 X10*6/uL (4.60-5.80); White Blood Count 5.8 X10*3/uL (4.8-10.8)
[2024-09-08 13:05] LABS: Estimated Average Glucose 108 mg/dL; Hemoglobin A1C 148.7633 umol/L; Hemoglobin A1c % 5.4 % (<6.0)
[2024-09-08 13:58] LABS: Alanine Aminotransferase 32 U/L (0-40); Albumin Level 4.3 g/dL (3.5-5.0); Alkaline Phosphatase 61 U/L (39-117); Anion Gap 8 (12-20); Aspartate Amino Transferase 30 U/L (5-37); Bilirubin Total 1.1 mg/dL (0.0-1.0); Blood Urea Nitrogen 10 mg/dL (9-16); C Reactive Protein < 0.10 mg/dL (< or = 0.50); Calcium 9.8 mg/dL (8.4-10.2); Carbon Dioxide 32 mmol/L (22-29); Chloride 103 mmol/L (96-108); Estimated Glomerular Filt Rate > 60; Glucose Random 91 mg/dL (60-115); Sodium 139 mmol/L (135-145); Total Protein 7.2 g/dL (6.5-8.0)
== END 2024-09-08 11:59 | disposition home or self-care (01) ==
LOC: HO.LAB 11:58
PROVIDERS: PCP Internal Medicine; Visit Provider Internal Medicine
DX: Z87.19 Personal history of other diseases of the digestive system (principal); Z83.3 Family history of diabetes mellitus; Z13.1 Encounter for screening for diabetes mellitus
CPT/HCPCS: 36415; 80053; 82550; 83036; 85025; 86140

== ENCOUNTER 2024-09-30 13:08 | Outpatient (REF) | payer OTHER, SELFPAY ==
--- NOTE | 2024-09-30 13:11 | EMG_ITS ---
Chief complaint: Left hand numbness Reason for referral: Evaluate for neuropathy Referred by: Dr. Chapa Procedure done: Left upper extremity NCS/EMG Precautions and/or limitations: None The limb temperature was monitored continuously and remained between 32-36 degrees C during the performance of the NCS. Ulnar motor NCS was performed with moderate elbow flexion between 70-90 degrees, with across-elbow distance of 10 cm. Nerve Conduction Studies Anti Sensory Summary Table ?Stim Site NR Onset (ms) Norm Onset (ms) Peak (ms) Norm Peak (ms) O-P Amp (?V) Norm O-P Amp Site1 Site2 Delta-0 (ms) Dist (cm) Blayne (m/s) Norm Blayne (m/s) Left Median Anti Sensory (2nd Digit) Wrist ? 3.0 3.9 <3.6 37.3 >10 Wrist 2nd Digit 3.0 14.0 47 Left Ulnar Anti Sensory (5th Digit) Wrist ? 2.6 3.7 <3.7 0.4 >15.0 Wrist 5th Digit 2.6 14.0 54 Motor Summary Table ?Stim Site NR Onset (ms) Norm Onset (ms) O-P Amp (mV) Norm O-P Amp iAmp (mV) Amp (1st) (%) Site1 Site2 Delta-0 (ms) Dist (cm) Blayne (m/s) Norm Blayne (m/s) Left Median Motor (Abd Poll Brev) Wrist ? 3.8 <3.9 12.3 >4.5 14.8 100.0 Elbow Wrist 4.6 23.0 50 >45 Elbow ? 8.4 11.3 14.4 91.9 Left Ulnar Motor (Abd Dig Minimi) Wrist ? 3.0 <3.0 6.6 >5 8.4 100.0 B Elbow Wrist 4.2 20.5 49 >45 B Elbow ? 7.2 4.3 5.9 65.2 A Elbow B Elbow 2.3 10.0 43 >45 A Elbow ? 9.5 3.2 4.5 48.5 Comparison Summary Table ?Stim Site NR Peak (ms) Norm Peak (ms) P-T Amp (?V) Site1 Site2 Delta-P (ms) Norm Delta (ms) Left Median/Radial Dig I Comparison (Digit 1 - 10cm) Median ? 3.1 <2.9 77.7 Median Radial 0.0 Radial ? 3.1 <2.8 22.4 EMG ?Side Muscle Nerve Root Ins Act Fibs Psw Amp Dur Poly Recrt Int Pat Comment Left 1stDorInt Ulnar C8-T1 Nml Nml Nml Nml Nml 0 Nml Complete Left Biceps Musculocut C5-6 Nml Nml Nml Nml Nml 0 Nml Complete Left Triceps Radial C6-7-8 Nml Nml Nml Nml Nml 0 Nml Complete Left Deltoid Axillary C5-6 Nml Nml Nml Nml Nml 0 Nml Complete Left FlexCarpiUln Ulnar C8,T1 Nml Nml Nml Nml Nml 0 Nml Complete FINDINGS: Left ulnar motor nerve showed normal distal latency, slight drop in amplitude proximally and slight slowing of conduction velocity across the elbow. Left ulnar sensory nerve showed prolonged peak latency and small amplitude. Left median sensory nerve showed prolonged peak latency. All other nerves tested were within normal. Concentric needle EMG was performed in selected muscles of the left upper extremity. Study did not reveal signs of electric abnormalities as shown in the table above. IMPRESSION: 1. This is an abnormal study. 2. 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 3. There are electrodiagnostic findings for mild left median neuropathy at at the wrist. Could be consistent with mild Carpal Tunnel Syndrome. 4. There is no electrodiagnostic evidence for brachial plexopathy or cervical radiculopathy. Thank you for your kind referral. Juany Tubbs MD, PEGGY Board Certified, [place] [employer] and Rehabilitation (ABPMR) Board Certified, [place] Board of Electrodiagnostic Medicine (ABEM) [place] [id number] [facility]
== END 2024-09-30 13:09 | disposition home or self-care (01) ==
LOC: HO.NEURO 13:08
PROVIDERS: PCP Internal Medicine; Visit Provider Internal Medicine
DX: R20.2 Paresthesia of skin (principal)
CPT/HCPCS: 95886; 95909

== ENCOUNTER → 2024-09-30 13:11 | Outpatient (BNV) | payer OTHER, SELFPAY | PROVIDERS: PCP Internal Medicine; Visit Provider Physical Medicine & Rehabilitation | DX: G56.22 Lesion of ulnar nerve, left upper limb (principal); G56.02 Carpal tunnel syndrome, left upper limb | CPT/HCPCS: 95886; 95909 ==

== ENCOUNTER 2024-11-08 14:15 | Outpatient (AMB) | payer OTHER, SELFPAY ==
--- NOTE | 2024-11-08 14:19 | A.OFFVIS_ITS ---
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 States this started about 2 months ago and is now more consistent. He is taking magnesium and zinc but isn't sure if its helping. States its mainly his index, middle and ring finger that goes numb. Patient denies hand injection, braces or O.T. EMG was done on 09/30/2024. IMPRESSION: 1. This is an abnormal study. 2. 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 3. There are electrodiagnostic findings for mild left median neuropathy at at the wrist. Could be consistent with mild Carpal Tunnel Syndrome. 4. There is no electrodiagnostic evidence for brachial plexopathy or cervical radiculopathy. 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 The patient reports that this numbness and tingling primarily affects the index, middle, and occasionally the ring fingers of the left hand. Denies any numbness and tingling in the small finger. Patient reports that this numbness and tingling has progressively worsened, and has become associated pain. But states that this is still intermittent, daily, worse at night. No other acute complaints or concerns at this time [facility] Medical History (Updated 11/08/24 @ 15:51 by ALMA Rome) H/O fracture of left hip Greater trochanteric bursitis of left hip No known health problems Family History (System 08/28/23 @ 13:10 by Carrie Johnson) Maternal Grandmother Diabetes Mother No problems noted. 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 Good APB muscle firing and good finger cross. Vascular: Capillary refill brisk. ROM: Patient can make a fist and extend all their digits. Skin: No lacerations or abrasions noted. General: No ecchymosis. No erythema or evidence of infection. Results Reviewed Results Reviewed: EMG performed on 09/30/2024 reveals mild left carpal and cubital tunnel syndromes Assessment & Plan Assessment & Plan (1) Left carpal tunnel syndrome: Code(s): G56.02 - Carpal tunnel syndrome, left upper limb Category: Medical (2) Cubital tunnel syndrome on left: Code(s): G56.22 - Lesion of ulnar nerve, left upper limb Category: Medical Plan 1. Carpal tunnel syndrome, left Symptoms intermittent, daily, worse at night I educated the patient about the condition. I discussed both operative and nonoperative treatment options. The patient would like to proceed with surgery. The risks and benefits of operative treatment were discussed with the patient and the patient wishes to proceed with surgery. These risks include, but are not limited to, risk of damage to blood vessels, nerves, tendons, infection, recurrence, incomplete relief of preoperative symptoms, persistent pain, possible need for further surgery, and the risks associated with regional blocks and/or anesthesia. Plan is to take the patient to the operating room at some point in the next few weeks for the following procedures: 1. Left carpal tunnel release under local All of the preoperative paperwork including the consent was discussed today. All of the patient's questions were answered in the clinic today. The patient understands that they will be in contact with our surgical first assistant to discuss scheduling their procedure. Patient denies diabetes, blood thinners, asthma, heart issues, lung issues, kidney issues, or current smoking. 2. Cubital tunnel syndrome, left Patient asymptomatic at this time Patient was informed that unless he is experiencing numbness and tingling in the small finger, we do not pursue cubital tunnel release, as it was a large procedure If patient begins to experience numbness and tingling in the left small finger, he should call us for reassessment Patient was amenable plan Patient will follow-up for his procedure, sooner any acute concerns Coding Level of Care Code New Pt Level 4 (92577) Diagnoses Left carpal tunnel syndrome G56.02 Cubital tunnel syndrome on left G56.22
[2024-11-08 14:20] VITALS: BMI 28.4
== END 2024-11-08 14:39 | disposition home or self-care (01) ==
PROVIDERS: PCP Internal Medicine
DX: G56.02 Carpal tunnel syndrome, left upper limb (principal); G56.22 Lesion of ulnar nerve, left upper limb
CPT/HCPCS: 99204

== ENCOUNTER 2025-07-04 15:34 | Outpatient (AMB) | payer OTHER, SELFPAY ==
--- NOTE | 2025-07-04 15:39 | A.OFFPC_ITS ---
Vital Signs 07/04/25 15:46 Height 6 ft 1 in Weight 97.069 kg BMI 28.2 BP 124/80 Respiration 14 Pulse 65 Pulse Source Pulse Oximeter Temp 97.2 F Temp Source Temporal Artery Scan Pulse Oximetry (%) 99 Oxygen Delivery Method Room Air Intake Visit Reasons: Annual - see comments Reproductive Healthcare Assistant Required: No Accompanied by: Self / Same As Patient Allergies oxycodone Allergy (Unknown, Verified 07/04/25 15:39) Hives Tobacco use date assessed: 07/04/25 Dental Screening Dental Screen Date: 07/04/25 Did you have a dental visit in the last 12 months?: Yes Did you have a dental problem in the last 6 months where you did not have access to dental care?: No Was dental information given to patient?: No HPI HPI Comments History of Present Illness Details 45-year-old male with history of carpal tunnel syndrome presents to the office today to establish care in for annual physical exam. He lives with his and 3 children and feels safe. 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 He requires waivers to be filled out. He consumes alcohol occasionally. History of smoking black and milds, last used 5 years ago, used for about 2 years. No illicit drug use or marijuana use. He has been working to improve his diet- lower sugar, simple carbs. Reports he feels better and has lost some weight. He exercises regularly with cardio, weights, push ups/sit ups every day. Prior Dr. Chapa patient, last seen beginning of the year. Chest pain-followed with Cardiology in 11/2022 due to episodes of what was deemed atypical chest pains. However, he was noted to have slight ST-elevation and stress test was ordered. There were no EKG changes with exertion. He was advised to follow-up in 1 month but he did not. He feels the abnormalities may have been related to poor sleep Concerns: None Health maintenance: Due for colonoscopy Reviewed past medical, surgical, family, social history. ROS: General: No fevers, malaise, unintentional weight loss HEENT: No blurred vision, diplopia. No sore throat, nasal congestion, rhinorrhea, sinus pain, ear pain. No hearing loss Neck - no adenopathy Cardiovascular: No chest pain, palpitations, or leg edema Respiratory: No shortness of breath, wheezing, cough GI: No dysphagia, odynophagia, globus sensation. No abdominal pain, nausea, vomiting, diarrhea, constipation, melena, hematochezia : No dysuria, hematuria, increased urinary frequency, decreased urinary output. No testicular swelling or pain. No penile discharge MSK: No myalgia, back pain, arthralgias Neuro: No headaches, weakness, paresthesias Psych: no depression/anxiery. No AH/VH. No SI/HI Skin: No rashes or lesions EXAM: Constitutional - Awake and Alert, No apparent distress Eyes - PERRLA, EOMI. Anicteric Ears - external ears normal, canals clear, TMs intact and pearly huang with good cone of light Nose- septum midline, nares clear, no sinus tenderness Mouth/throat- mucosa moist, tongue and uvula midline, no erythema/edema or tonsillar adenopathy. Neck-trachea midline, thyroid symmetric without palpable nodules, no adenopathy Cardiovascular - S1S2, RRR, No edema Respiratory - Normal lung expansion, Normal respiratory effort, No respiratory distress, CTA bilaterally Gastrointestinal - NT / ND; +BS; No rebound or guarding - No CVA tenderness Extremities - no calf tenderness bilaterally, no swelling Musculoskeletal - Normal inspection, normal ROM Skin - Warm/Dry, no concerning lesions Neurological - Alert & oriented x3, CN II-XII in tact, 5/5 strength BUE and BLE, 2+ patellar reflexes, sensation intact Psychological - Appropriate affect [facility] Medical History H/O fracture of left hip Greater trochanteric bursitis of left hip No known health problems Surgical History S/P open reduction and internal fixation (ORIF) of fracture of lateral condyle of left femur Family History Maternal Grandmother Diabetes HTN (hypertension) Mother Myocardial infarct Paternal Grandfather Alzheimer dementia Social History Housing: House Alcohol intake: current Alcohol intake frequency: holidays/special occasions only Alcohol type: wine and hard liquor Patient Tobacco Use Status: Never used Tobacco e-Cigarette/Vaping Use: Never Used service: No Current occupational status: employed 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 1. Little interest or pleasure in doing things: nearly every day 2. Feeling down, depressed, or hopeless: not at all 3. Trouble falling or staying asleep, or sleeping too much: not at all 4. Feeling tired or having little energy: several days 5. Poor appetite or overeating: not at all 6. Feeling bad about yourself - or that you are a failure or have let yourself or your family down: not at all 7. Trouble concentrating on things, such as reading the newspaper or watching television: nearly every day 8. Moving or speaking so slowly that other people could have noticed. Or the opposite - being so fidgety or restless that you have been moving around a lot more than usual: several days 9. Thoughts that you would be better off or of hurting yourself in some way: not at all Total score: 8 Source: Developed by Drs. Arun Frederick, Addis Richardson, Cj Rai and colleagues, with an educational alon from [employer]. Thrive Questionnaire Date Thrive assessed: 07/04/25 I am a: Patient What is your living situation today?: I have a steady place to live Within the past 12 months, did the food you bought not last and you didn't have the money to get more?: Never true Within the past 12 months, did you worry whether your food would run out before you got money to buy more?: Never true Do you have trouble paying for medicines?: No Do you have trouble getting transportation to medical appointments?: No Do you have trouble paying your heating and electricity bill?: No Do you have trouble taking care of your child, family member or friend?: No Do you have trouble with day-to-day activities such as bathing, preparing meals, shopping, managing finances, etc.?: No Are you currently unemployed and looking for a job?: No Are you interested in more education?: No Please select the resources that you would like help with: None THRIVE Score: 0 HOUSTON-7 AMB Questionnaire HOUSTON-7 Date HOUSTON - 7 assessed: 07/04/25 Feeling nervous, anxious, or on edge: 1 = Several days Not being able to stop or control worryin = Several days Worrying too much about different things: 1 = Several days Trouble relaxin = Several days Being so restless that it is hard to sit still: 0 = Not at all Becoming easily annoyed or irritable: 2 = More than half the days Feeling afraid as if something awful might happen: 1 = Several days Total HOUSTON-7 score (0-4 normal; 5-9 mild; 10-14 moderate; 15-21 severe): 7 Source: Developed by Drs. Arun Frederick, Addis Richardson, Cj Rai and colleagues, with an educational alon from [employer]. Physical exam (Primary Care) Vital Signs: Last Vital Signs Temp 97.2 F 07/04/25 15:46 Pulse 65 07/04/25 15:46 Resp 14 07/04/25 15:46 BP 124/80 07/04/25 15:46 Pulse Ox 99 07/04/25 15:46 Oxygen Delivery Method Room Air 07/04/25 15:46 BMI result Body Mass Index 28.2 Tobacco/Smoking Status: Tobacco use Status Tobacco use date assessed 07/04/25 07/04/25 15:49 Patient Tobacco Use Status Never used Tobacco 07/04/25 15:41 e-Cigarette/Vaping Use Never Used 07/04/25 15:49 PHQ-9: PHQ-9 Score PHQ-9: Total score 8 07/04/25 15:52 Thrive Assessment: Date of Thrive Assessment Date Thrive assessed 07/04/25 07/04/25 15:52 Office Procedures EKG Details: NSR, rate 67. Inferior repolarization disturbance noted, no significant change compared to prior EKGs 13818-[id number], Complete Coding Level of Care Code New Pt Prev Care 40-64y(72876) Diagnoses Routine medical exam Z00.00 Chest discomfort R07.89 CPT Codes EKG - CPT: 16595-Brtbeepnwnzbjhrly, Complete ([id number]) Assessment & Plan Assessment & Plan (1) Routine medical exam: Code(s): Z00.00 - Encounter for general adult medical examination without abnormal findings Plan: 45-year-old male presenting for annual physical exam. Plan as below (2) Chest discomfort: Code(s): R07.89 - Other chest pain Category: Medical Plan: EKG performed in the office, unchanged from prior EKGs. Reviewed last stress test. Given stability of EKGs and absence of symptoms, we will continue monitoring Plan Routine screening labs as ordered below Referred for screening colonoscopy Continue following for annual skin exams and use sun protection Annual eye exams Wear seat belt in car Recommend regular exercise and healthy diet Follow up in 1 year Orders: Orders Liver Panel Today Z00.00 - Encounter for general adult medical examination without abnormal findings Basic Metabolic Panel Today Z00.00 - Encounter for general adult medical examination without abnormal findings Complete Blood Count Auto Diff Today Z00.00 - Encounter for general adult med ical examination without abnormal findings Lipid Panel Today Z00.00 - Encounter for general adult medical examination without abnormal findings AMB EKG-In Office Today R07.89 - Other chest pain
[2025-07-04 15:46] VITALS: BP 124/80; PULSE 65; RESP 14; TEMP 36.2; O2SAT 99; BMI 28.2
--- OUTSIDE RECORDS SUMMARY | 2025-07-04 20:56 | XMS_ITS | Patient Health Record ---
Author Organization [facility] Address [address] [place] [address] Care Team Providers Care Forestry Hunter Name Role Phone Eduard (RETIRED) Harley ZARATE Primary Care Provide r Erick Santos Jr Unavailable Reason For Referral No Information Medications Medication SIG (Take, Route, Fr equency, Duration) Notes Start Date End Date Status Levsin/SL 0.125 MG 1 tablet under the t ongue and allow to dissolve as needed Sublingual every 1- 4 hrs. Do not exceed 6/day 02/23/2015 Active Plan Of Treatment No Information Insurance Providers Payer Name Payer Address Payer Phone Subscriber Number Group Number Insured Name Patient Relationship to Insured Coverage Start Date Coverage End Date [facility] [address] [place] [address] [id number] AVINASH WITT Self - patient is the insured Medical (General) History Medical History History ICD Code Denies [place],DM,CVA,Lung disease,renal dise ase Surgical History Surgery Date(Month/Year) BOIL REMOVED
--- OUTSIDE RECORDS SUMMARY | 2025-07-04 20:57 | XMS_ITS | Clinical Summary ---
Author Organization [facility] Address [address] [place] [phone] Phone Care Team Providers Care Chemical Process Project Engineer Name Role Phone Harley Chapa MD Primary Care Provider Social History Tobacco Use Types Packs/Day Years Used Date Smoking Tobacco: Never Assessed Education Answer Date Recorded Are you interested in more education? Not on benson e 07/15/2024 Are you concerned about learning? Not on file 07/15/2024 No 07/15/2024 No 07/15/2024 Digital Access Answer Date Recorded No 07/15/2024 No 07/15/2024 Reliable internet access at home? Not on file 07/15/2024 Device with a working camera? Not on file Sex and Gender Information Value Date Recorded Sex Assigned at Not on file Legal Sex Male 3:17 PM EDT Gender Identity Not on file Sexual Orientation Not on file Plan of Treatment Health Maintenance Due Date Last Done Comments Adult Td,Tdap Booster 1978 LIPID PANEL 1978 DEPRESSION SCREENING 1990 SMOKING Hx and SMOKELESS TOB ACCO SCREENING 1991 HEPATITIS C SCREENING 02/27/1996 HIV ONE-TIME SCREENING (18-6 5 YEARS) 02/27/1996 COLOGUARD 2023 COLONOSCOPY 2023 COLORECTAL CANCER SCREENING 2023 FIT TEST 2023 FOBT 2023 SIGMOIDOSCOPY 2023 VIRTUAL COLONOSCOPY 2023 INFLUENZA VACCINE (#1) 2025 COVID-19 VACCINE ( - 2023-2 5 season) 2025 HEPATITIS A VACCINES Aged Out No long er eligible based on patient's age to complete this topic HIB VACCINES Aged Out No longer eligi ble based on patient's age to complete this topic MENINGOCOCCAL VACCINES (ACWY) Aged Out No longer eligible based on patient's age to complete this topic MENINGOCOCCAL VACCINES (B) Aged Out N o longer eligible based on patient's age to complete this topic PNEUMOCOCCAL VACCINES (0-49 years) Aged Out No longer eligible based on patient's age to complete this topic Medical Devices Not on file Insurance [address] [place], [place] [id number] [place], [place] [id number] O Care Teams Chemical Process Project Engineer Relationship Specialty Start Date End Date Harley Chapa MD [address] [place] [address] [facility] [address] [place] [address] PCP - General Internal Medicine 07/15/24 Additional Source Comments The information contained in this document represents components of the legal health record. It is not the complete legal health record.[facility]
== END 2025-07-04 16:50 | disposition home or self-care (01) ==
LOC: HO.HMCHD 15:34
PROVIDERS: PCP Internal Medicine; Visit Provider Physician Assistant
DX: Z00.00 Encounter for general adult medical examination without abnormal findings (principal); R07.89 Other chest pain

== ENCOUNTER 2025-07-04 15:34 | Outpatient (REF) | payer OTHER, SELFPAY ==
[2025-07-04 16:56] LABS: MANUAL DIFF FLAG NO
[2025-07-04 17:10] LABS: Hematocrit 43.2 % (42.0-52.0); Hemoglobin 14.9 g/dl (14.0-18.0); Imm Gran Abs Auto 0.03 X10*3/uL (0.00-0.03); Imm Gran Pct Auto 0.5 % (0.0-0.4); Lymphocytes Absolute Auto 2.2 X10*3/uL (1.2-4.9); Mean Corpuscular HGB Conc 34.5 g/dl (31.0-36.0); Mean Corpuscular Hemoglobin 31.5 pg (27.0-33.0); Mean Corpuscular Volume 91.3 fL (80.0-98.0); NRBC Abs Auto 0.000 X10*3/uL (0.0-0.012); NRBC Pct Auto 0.0 /100WBC (0.0-0.2); Platelet Count 262 X10*3/uL (160-400); Red Blood Count 4.73 X10*6/uL (4.60-5.80); White Blood Count 5.8 X10*3/uL (4.8-10.8)
[2025-07-04 17:34] LABS: Alanine Aminotransferase 42 U/L (0-40); Albumin Level 4.5 g/dL (3.5-5.0); Alkaline Phosphatase 73 U/L (39-117); Anion Gap 11 (12-20); Aspartate Amino Transferase 43 U/L (5-37); Blood Urea Nitrogen 15 mg/dL (9-16); Calcium 9.5 mg/dL (8.4-10.2); Carbon Dioxide 30 mmol/L (22-29); Chloride 104 mmol/L (96-108); Cholesterol 272 mg/dL (<200); Estimated Glomerular Filt Rate > 60; HDL Cholesterol 43 mg/dL (>40); Potassium 4.4 mmol/L (3.3-5.1); Sodium 141 mmol/L (135-145); Total Protein 7.3 g/dL (6.5-8.0); Triglycerides 236 mg/dL (<150)
== END 2025-07-04 15:35 | disposition home or self-care (01) ==
LOC: HO.LAB 15:34
PROVIDERS: PCP Physician Assistant; Visit Provider Physician Assistant
DX: Z00.00 Encounter for general adult medical examination without abnormal findings (principal); R07.89 Other chest pain
CPT/HCPCS: 36415; 80048; 80061; 80076; 85025; 93005

== ENCOUNTER 2025-08-02 10:08 | Outpatient (AMB) | payer OTHER, SELFPAY ==
--- NOTE | 2025-08-02 09:40 | MHC.PC.OV ---
Vital Signs 08/02/25 10:21 Height 5 ft 10.75 in Weight 217 lb BMI 30.5 BP 116/68 Blood Pressure Location Lt brachial Position Sitting Respiration 16 Pulse 65 Pulse Source Pulse Oximeter Temp 97.6 F Temp Source Temporal Artery Scan Pulse Oximetry (%) 97 Oxygen Delivery Method Room Air Intake Visit Reasons: Bilateral hand/wrist arm rash Railroad Track Inspector Required: No Accompanied by: Self / Same As Patient Allergies No Known Allergies Allergy (Verified 08/02/25 10:23) Tobacco use date assessed: 07/04/25 Dental Screening Dental Screen Date: 07/04/25 HPI HPI Comments History of Present Illness Details The patient is a 45-year-old male presenting with hives and persistent itching. The hives reportedly started suddenly on the day of the visit. The patient mentions that he has experienced similar symptoms in the past, which resolved with the administration of Benadryl, but he has not taken any for this episode. The patient describes the hives being widespread and mentions that his arms are primarily affected. Moreover, he suspects that a recent change in detergent might have contributed to the symptoms. There are reports of the hives bleeding upon itching. The patient also recalls an episodic skin condition affecting his hands and fingers, mainly in the summer months, described as making the skin benefits manager around the knuckles and fingers. However, it is not currently visible and only noted prominently during the summer. Regarding systemic symptoms, the patient denies experiencing fever or chills. The patient also denies exposure to poison darlyn, changes in sheets, new food items, or new contact with allergens other than the detergent change. 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 - Exercise regularly by jogging - No smoking, alcohol, or drug use reported [facility] Medical History (Updated 08/02/25 @ 10:50 by Alexander Pete MD) Contact dermatitis Cubital tunnel syndrome on left Left carpal tunnel syndrome Left hip pain Hyperlipidemia H/O fracture of left hip Greater trochanteric bursitis of left hip No known health problems Surgical History S/P open reduction and internal fixation (ORIF) of fracture of lateral condyle of left femur Family History Maternal Grandmother Diabetes HTN (hypertension) Mother Myocardial infarct Paternal Grandfather Alzheimer dementia Social History Housing: House Alcohol intake: current Alcohol intake frequency: holidays/special occasions only Alcohol type: wine and hard liquor Patient Tobacco Use Status: Never used Tobacco e-Cigarette/Vaping Use: Never Used service: No Current occupational status: employed 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 Arun Frederick, Addis Richardson, Cj aRi and colleagues, with an educational alon from [employer]. Review of Systems Const Details: - Skin: Reports hives, itching, and bleeding upon scratching - Constitutional: Denies fevers, chills All systems reviewed & are unremarkable except as reviewed in HPI and above Physical exam (Primary Care) Vital Signs: Last Vital Signs Temp 97.6 F 08/02/25 10:21 Pulse 65 08/02/25 10:21 Resp 16 08/02/25 10:21 BP 116/68 08/02/25 10:21 Pulse Ox 97 08/02/25 10:21 Oxygen Delivery Method Room Air 08/02/25 10:21 BMI result Body Mass Index 30.5 Tobacco/Smoking Status: Tobacco use Status Tobacco use date assessed 07/04/25 08/02/25 09:41 Patient Tobacco Use Status Never used Tobacco 08/02/25 09:41 e-Cigarette/Vaping Use Never Used 08/02/25 09:41 Thrive Assessment: Date of Thrive Assessment Date Thrive assessed 07/04/25 08/02/25 09:41 Const Other: General: Alert and oriented, Well nourished, No acute distress. Eye: Pupils are equal, round and reactive to light, Intact accommodation, Extraocular movements are intact, Normal conjunctiva, Vision unchanged. HENT: Normocephalic, Atraumatic, Tympanic membranes are clear, Normal hearing, Oral mucosa is moist, No pharyngeal erythema, Ear canals patent. Respiratory: Lungs CTA bilaterally, No wheeze, Respirations are non-labored. Cardiovascular: Regular rate, Regular rhythm, S1 auscultated, S2 auscultated, No murmur, Good pulses equal in all extremities, Normal peripheral perfusion, No edema. Gastrointestinal: Soft, Non-tender, Non-distended, Normal bowel sounds, No organomegaly. Musculoskeletal: Normal range of motion, Normal strength, No tenderness, No swelling, No deformity, Normal gait. Integumentary: Warm, Dry, [place], Intact, Breaking out in hives, Itchy, Possible contact dermatitis. Neurologic: Alert, Oriented, Normal sensory, Normal motor function, No focal defects, Cranial Nerves II-XII are grossly intact, Normal deep tendon reflexes. Psychiatric: Cooperative, Appropriate mood & affect, Normal judgment. Coding Level of Care Code Est Pt Level 3 (85125) Complex EM visit Add On G2211 Diagnoses Contact dermatitis, unspecified contact dermatitis type, unspecified trigger L25.9 Contact dermatitis type: unspecified Contact dermatitis trigger: unspecified trigger Other hyperlipidemia E78.49 Hyperlipidemia type: other hyperlipidemia Assessment & Plan Assessment & Plan (1) Contact dermatitis: Comment: - Suspected contact dermatitis due to possible exposure to allergens or irritants like detergents. - Recommended cessation of the suspected cause. Educated the patient to identify and avoid new or changed household products, including detergents. - Prescribed loratadine 10 mg daily for symptomatic relief of itching, noting the preference for it over Benadryl due to sedation effects associated with Benadryl. Code(s): L25.9 - Unspecified contact dermatitis, unspecified cause Category: Medical Qualifiers: Contact dermatitis type: unspecified Contact dermatitis trigger: unspecified trigger Qualified Code(s): L25.9 - Unspecified contact dermatitis, unspecified cause (2) Hyperlipidemia: Comment: - Switched from atorvastatin to rosuvastatin due to reported side effects with atorvastatin, such as perceived shortness of breath. - Prescribed rosuvastatin 20 mg daily in the morning. Code(s): E78.5 - Hyperlipidemia, unspecified Category: Medical Qualifiers: Hyperlipidemia type: other hyperlipidemia Qualified Code(s): E78.49 - Other hyperlipidemia Plan: Health Maintenance: - Discussed lifestyle modifications for managing cholesterol levels - Emphasized the importance of identifying and eliminating potential allergens to prevent dermatitis Patient was informed and verbally consented to the use of an ambient scribe for clinic note documentation during this visit. Plan During the visit, I discussed the likely diagnosis of contact dermatitis, attributing the itching and hives to potential irritants such as detergents or new substances the patient was exposed to. After explaining the possible sedation and drowsiness associated with Benadryl, I recommended loratadine as a safer alternative for treating the allergic symptoms. We reviewed the necessary lifestyle adjustments, such as switching household products and observing any changes in the environment. The prescription of loratadine and switching his statin medication to rosuvastatin to manage his cholesterol were agreed upon. I outlined the need for a follow-up evaluation, particularly if symptoms worsen or additional skin issues develop. Additionally, I advised checking in with dermatology during any flare-up of the summer-related skin condition to rule out any fungal etiology. Medications: New rosuvastatin 20 mg PO DAILY 90 tabs 0RF loratadine 10 mg PO DAILY 30 tabs 0RF Discontinued atorvastatin (Lipitor) Discontinued Reason: Doctor's Order 40 mg PO DAILY 90 tabs 1RF Patient Instructions: - Avoid any new or changed detergents, soaps, or other potential skin irritants. - Take loratadine 10 mg daily as prescribed for symptom relief. - Start taking rosuvastatin 20 mg daily in the morning. - If your hives worsen or more symptoms appear, contact the office. - Make note of any changes in the skincare products or household items you use. - For your cholesterol, continue follow-up visits and discuss any side effects with your medication. - Schedule an evaluation during summer flares of hand and finger skin changes.
[2025-08-02 10:21] VITALS: BP 116/68; PULSE 65; RESP 16; TEMP 36.4; O2SAT 97; BMI 30.5
--- OUTSIDE RECORDS SUMMARY | 2025-08-02 11:44 | XMS_ITS | Patient Health Record ---
Author Organization [facility] Address [address] [place] [address] Care Team Providers Care Internal Control Analyst Name Role Phone Eduard (RETIRED) Harley ZARATE Primary Care Provide r Erick Santos Jr Unavailable [phone] Reason For Referral No Information Medications Medication [...] Insured Coverage Start Date Coverage End Date [facility] [address] [place] [address] [phone] [id number] AVINASH WITT Self - patient is the insured Medical (General) History Medical History History ICD Code Denies [place],DM,CVA,Lung disease,renal dise ase Surgical History Surgery Date(Month/Year) BOIL REMOVED
--- OUTSIDE RECORDS SUMMARY | 2025-08-02 11:45 | XMS_ITS | Clinical Summary ---
Author Organization [facility] Address [address] [place] [id number] Phone Care Team Providers Care Picture Frames Inspector Name Role Phone Harley Chapa MD Primary [...] VACCINE (#1) 2025 COVID-19 VACCINE ( - 2024-2 6 season) 2025 HEPATITIS A VACCINES Aged Out [...] topic Medical Devices Not on file Insurance [address] [place], [place] [id number] [place], [place] [id number] O Care Teams Picture Frames Inspector Relationship Specialty Start Date End Date Harley Chapa MD [address] [place] [address] [facility] [address] [place] [address] PCP - General Internal Medicine 07/15/24 Additional Source Comments The information contained in this document represents components of the legal health record. It is not the complete legal health record.[facility]
== END 2025-08-02 11:02 | disposition home or self-care (01) ==
LOC: HO.HMCHD 10:09
PROVIDERS: PCP Physician Assistant; Visit Provider Student in an Organized Health Care Education/Training Program
DX: L25.9 Unspecified contact dermatitis, unspecified cause (principal); E78.49 Other hyperlipidemia

== ENCOUNTER 2025-09-06 08:30 | Outpatient (REF) | payer OTHER, SELFPAY ==
[2025-09-06 09:29] LABS: Alanine Aminotransferase 45 U/L (0-40); Albumin Level 4.7 g/dL (3.5-5.0); Alkaline Phosphatase 65 U/L (39-117); Aspartate Amino Transferase 45 U/L (5-37); Cholesterol 247 mg/dL (<200); HDL Cholesterol 48 mg/dL (>40); Total Protein 7.4 g/dL (6.5-8.0); Triglycerides 201 mg/dL (<150)
== END 2025-09-06 08:31 | disposition home or self-care (01) ==
LOC: HO.LAB 08:30
PROVIDERS: Visit Provider Physician Assistant
DX: E78.5 Hyperlipidemia, unspecified (principal)
CPT/HCPCS: 36415; 80061; 80076

== ENCOUNTER 2025-09-13 14:55 | Outpatient (AMB) | payer OTHER, SELFPAY ==
[2025-09-13 15:09] VITALS: BP 124/68; PULSE 72
--- NOTE | 2025-09-13 15:09 | A.OFFVIS_ITS ---
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 His last prior visit was 11/22/2022. Today he reports that his cholesterol is not optimally controlled. He believes his rosuvastatin dose is being increased from 20 to 40 mg daily but he has not picked up the new tablets yet. He has not been getting any chest discomfort at rest or with exertion. No shortness of breath, PND, orthopnea or edema. No heart palpitations, lightheadedness, presyncope, syncope. 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 He does have issues with fatigue due to his broken sleep. He has never smoked. He uses alcohol socially. [facility] Medical History Contact dermatitis Cubital tunnel syndrome on left Left carpal tunnel syndrome Left hip pain Hyperlipidemia H/O fracture of left hip Greater trochanteric bursitis of left hip No known health problems Surgical History S/P open reduction and internal fixation (ORIF) of fracture of lateral condyle of left femur Family History Maternal Grandmother Diabetes HTN (hypertension) Mother Myocardial infarct Paternal Grandfather Alzheimer dementia Social History Housing: House Alcohol intake: current Alcohol intake frequency: holidays/special occasions only Alcohol type: wine and hard liquor Patient Tobacco Use Status: Never used Tobacco e-Cigarette/Vaping Use: Never Used service: No Current occupational status: employed 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 Cognitive needs: No Hearing needs: No Vision needs: No Review of Systems Const All systems reviewed & are unremarkable except as noted in HPI and below Denies chills, Denies fatigue, Denies fever(s), Denies frequent falls, Denies weakness, Denies weight gain and Denies weight loss ENT Denies dizziness Card Denies chest pain, Denies leg edema, Denies lightheadedness, Denies palpitations, Denies dyspnea, Denies dyspnea on exertion, Denies orthopnea and Denies other (loss of consciousness) Resp Denies cough, Denies dyspnea and Denies dyspnea on exertion GI Denies hematochezia and Denies change in stool character Musc Denies abnormal gait, Denies muscle weakness, Denies numbness, Denies radiating pain into limb and Denies tingling Neuro Denies Abnormal speech present, Denies abnormal gait, Denies dizziness, Denies frequent falls, Denies numbness, Denies tingling and Denies weakness Endo Denies fatigue and Denies palpitations Physical Exam Vital Signs: BMI result Body Mass Index 30.0 Const General: cooperative, healthy appearing, comfortable and no acute distress Orientation/consciousness: patient oriented x3 HEENT Head: Yes normal to inspection Neck Neck: Yes normal visual inspection Chest Chest palpation & inspection: normal inspection of the chest Resp Effort & Inspection: normal respiratory effort Auscultation: clear to auscultation bilaterally, no crackles, no rales, no rhonchi and no wheezes Cardio Jugular venous distension: no JVD Rate: regular rate Rhythm: regular rhythm Heart sounds: S1 normal heart sound present, S2 normal heart sound present, no gallops, no murmurs and no rubs Peripheral pulses: Peripheral pulses 2+ throughout GI Inspection: Yes normal to inspection Neuro General: patient oriented x3 Speech: No Abnormal speech present Extrem General: Yes normal to inspection Psych Appearance: grossly normal Mental Status: mental status grossly normal Speech and movement: Normal speech and movement present Assessment & Plan Assessment & Plan (1) Abnormal EKG: Code(s): R94.31 - Abnormal electrocardiogram [ECG] [EKG] Category: Medical Plan: History of EKG showing abnormal findings of mild downsloping ST depressions lead 3 and AVF, slight ST elevations lead 1 and aVL. EKG done 07/04/2025, unchanged from prior. He has normal [place], QRS and QTC intervals. An echocardiogram 11/18/22 was done showing EF 60-65%, no regional wall motion abnormalities and no pericardial effusion. An exercise nuclear stress test 11/28/2022 with good exercise tolerance, no anginal symptoms, EKGs nondiagnostic due to baseline abnormality, normal myocardial perfusion imaging. He does have family history of mother having sudden cardiac in her 30s, which gives him ongoing concerns. His cholesterol is not optimally controlled but reports that his rosuvastatin dose is being increased. Will check a coronary calcium score for further evaluation. He has no palpitations - no concern for arrhythmias. Continue with risk factor modification. Cardiology follow-up 6 months, sooner if needed. (2) Hyperlipidemia: Code(s): E78.5 - Hyperlipidemia, unspecified Category: Medical Qualifiers: Hyperlipidemia type: other hyperlipidemia Qualified Code(s): E78.49 - Other hyperlipidemia Plan: [place] LDL goal < 100. He is on rosuvastatin and tells me his dose is being increased up to 40 mg daily for recent LDL 159. (3) Family history of early CAD: Comment: Mom 30's dt [place] Code(s): Z82.49 - Family history of ischemic heart disease and other diseases of the circulatory system Category: Medical Plan I discussed with the patient that while the 2022 stress test and echocardiogram were normal, this does not rule out the presence of non-obstructive coronary artery plaque, especially given the history of significantly elevated chol esterol. As the patient is not having chest pain, I recommended a coronary calcium score to quantify any existing plaque and better define future cardiovascular risk. I informed the patient that this test is a non-contrast CT scan that is typically not covered by insurance and costs approximately $160. The patient understood and consented to proceed. I explained that a high calcium score might lead to further testing, such as a CT angiogram or a cardiac catheterization, and we would call with these results and any subsequent recommendations. I reinforced that regardless of the test results, aggressive control of cholesterol is essential, and supported the primary care provider's plan to increase the patient's rosuvastatin dose. I also noted the recent mild elevation in liver enzymes and advised that these should be monitored with the next blood draw for cholesterol. We reviewed general heart-healthy lifestyle measures, and a follow-up appointment was scheduled for six months. Orders: Orders CT Coronary Calcium Score Today E78.49 - Other hyperlipidemia, Z82.49 - Family history of ischemic heart disease and other diseases of the circulatory system Patient Instructions: - We will place an order for a coronary calcium score, which is a CT scan to look for plaque in your heart arteries. - Please be aware that this test is often not covered by insurance and may cost you about $160 [id number]. - We will call you with the results of the scan and let you know if any further tests are needed. - Continue your cholesterol medication, rosuvastatin. - Your primary doctor is planning to increase the dose to 40 mg, which we agree with. - Your liver tests should be checked when you have your next blood draw for your cholesterol. - Continue to focus on a healthy lifestyle, including managing your blood pressure, staying active, controlling your weight, eating well, and getting enough rest. - Please schedule a follow-up appointment in our office in six months. Patient was informed and verbally consented to the use of an ambient scribe for clinic note documentation during this visit. Visit time spent on chart review, interview, assessment, orders, documentation. Coding Level of Care Code Est Pt Level 4 (30000) Complex visit Add On G2211 Diagnoses Abnormal EKG R94.31 Other hyperlipidemia E78.49 Hyperlipidemia type: other hyperlipidemia Family history of early CAD Z82.49 Time Spent (min) 28
--- OUTSIDE RECORDS SUMMARY | 2025-09-13 18:42 | XMS_ITS | Patient Health Record ---
Author Organization [facility] Address [address] [place] [address] Care Team Providers Care Supervisor [employer] Name Role Phone Eduard (RETIRED) Harley ZARATE Primary Care Provide r Erick Santos Jr Unavailable Reason For Referral No Information Medications Medication SIG (Take, Route, Frequency, Duration) Notes Start Date End Date Status Levsin/SL 0.125 MG Tablet Sublingual 1 tablet under the tongue and allow to dissolve as needed Sublingual every 1- 4 hrs. 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
--- OUTSIDE RECORDS SUMMARY | 2025-09-13 18:42 | XMS_ITS | Clinical Summary ---
Author Organization [facility] Address [address] [place] [id number] Phone Care Team Providers Care Installation Technician Name Role Phone Harley Chapa MD Primary [...] topic Medical Devices Not on file Insurance [address] [place], [place] [id number] [place], [place] [id number] O Care Teams Installation Technician Relationship Specialty Start Date End Date Harley Chapa MD [address] [place] [address] [facility] [address] [place] [address] PCP - General Internal Medicine 07/15/24 Additional Source Comments The information contained in this document represents components of the legal health record. It is not the complete legal health record.[facility]
== END 2025-09-13 15:47 | disposition home or self-care (01) ==
LOC: HO.HCS 14:55
PROVIDERS: PCP Physician Assistant; Visit Provider Nurse Practitioner Family
DX: R94.31 Abnormal electrocardiogram [ECG] [EKG] (principal); E78.49 Other hyperlipidemia; Z82.49 Family history of ischemic heart disease and other diseases of the circulatory system
CPT/HCPCS: 99214; G2211